=== PATIENT | female | born 2000 | race Caucasian/White ===

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

== ENCOUNTER 2020-06-02 09:07 | Emergency (ER) | payer OTHER ==
[2020-06-02 09:13] VITALS: RESP 18; TEMP 98.3
[2020-06-02] MEDS ORDERED: PANTOPRAZOLE 40 MG/10 ML VIAL IVP STA (09:31)
[2020-06-02] MEDS ORDERED: SODIUM CHLORIDE 0.9% 500 ML 500 ML IV STA (09:31)
[2020-06-02] MEDS ORDERED: ONDANSETRON 4 MG/2 ML VIAL IVP STA (09:32)
--- NOTE | 2020-06-02 09:34 | ED ---
General Adult HPI - General Chief complaint: Nausea/Vomiting/Diarrhea Stated complaint: Vomiting blood Time Seen by Provider: 06/02/20 09:26 Source: patient, RN notes reviewed, old records reviewed Mode of arrival: ambulatory Limitations: no limitations - History of Present Illness Initial comments: 19-year-old female presented for evaluation of vomiting. Patient had an episode prior to arrival of nausea vomiting with significant amount of blood. She denies a prior history of gastrointestinal bleeding. She does report anemia which she takes iron supplementation for she also reports dark stool for some time. She reports minimal epigastric abdominal pain. No fever. There is only one isolated episode of vomiting. No diarrhea. Denies current . - Related Data Home Medications Medication Instructions Recorded Confirmed Methylphenidate HCl [Ritalin] 10 mg PO BID@0600,1500 06/02/20 06/02/20 QUEtiapine [SEROquel] 100 mg PO HS 06/02/20 06/02/20 Allergies Allergy/AdvReac Type Severity Reaction Status Date / Time dextromethorphan HBr Allergy Rash/Hives Verified 06/02/20 10:04 [From Delsym Cough & Cold] doxylamine Allergy Rash/Hives Verified 06/02/20 10:04 [From Delsym Cough & Cold] honey Allergy Rash/Hives Verified 06/02/20 10:04 Review of Systems ROS Statement: Those systems with pertinent positive or pertinent negative responses have been documented in the HPI. ROS Other: All systems not noted in ROS Statement are negative. Past Medical History Past Medical History: No Reported History Additional Past Medical History / Comment(s): Obstetric history: This is her first and she's had care with me since the first trimester. Blood type is AB-, antibodies negative, rubella immune, hepatitis B-, GBS negative, HIV nonreactive, RPR nonreactive. Her growth ultrasound at 35 weeks t he baby is measuring only in the 20th percentile. Last week was undocked on the 17th percentile. History of Any Multi-Drug Resistant Organisms: None Reported Past Surgical History: No Surgical Hx Reported Past Psychological History: Anxiety, Bipolar Smoking Status: Never smoker Past Alcohol Use History: None Reported Past Drug Use History: Marijuana - Past Family History Mother Family Medical History: No Reported History General Exam Limitations: no limitations General appearance: alert, in no apparent distress Head exam: Present: atraumatic, normocephalic Eye exam: Present: normal appearance, PERRL ENT exam: Present: normal exam Neck exam: Present: normal inspection. Absent: tenderness, meningismus Respiratory exam: Present: normal lung sounds bilaterally. Absent: respiratory distress, wheezes Cardiovascular Exam: Present: regular rate, normal rhythm GI/Abdominal exam: Present: soft, tenderness (Minimal epigastric tenderness). Absent: distended Extremities exam: Present: normal inspection, normal capillary refill. Absent: pedal edema, joint swelling Neurological exam: Present: alert, oriented X3, CN II-XII intact. Absent: motor sensory deficit Psychiatric exam: Present: normal affect, normal mood Skin exam: Present: warm, dry, intact. Absent: cyanosis, diaphoretic Course Vital Signs 06/02/20 09:11 Temperature 98.3 F Pulse Rate 84 Respiratory 18 Rate Blood Pressure 119/83 O2 Sat by Pulse 100 Oximetry Medical Decision Making - Medical Decision Making 19-year-old female presenting with an episode of vomiting which did contain blood. No further episodes while in the emergency department. Her Hemoccult is negative. Hemoglobin is 14.9. Other laboratory studies are unremarkable. Patient is feeling better and eager for discharge. 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 She is given return parameters heart additionally she is instructed to take omeprazole 20 mg twice daily for several days. Follow-up with her primary care physician. - Lab Data Result diagrams: 06/02/20 10:41 06/02/20 10:41 Lab Results 06/02/20 06/02/20 06/02/20 Range/Units 10:41 10:41 10:41 WBC 9.1 (4.0-11.0) k/uL RBC 5.00 (3.80-5.40) m/uL Hgb 14.9 (11.4-16.0) gm/dL Hct 43.3 (34.0-46.0) % MCV 86.7 (80.0-100.0) fL MCH 29.9 (25.0-35.0) pg MCHC 34.5 (31.0-37.0) g/dL RDW 12.7 (11.5-15.5) % Plt Count 262 (150-450) k/uL MPV 7.3 Neutrophils % 65 % Lymphocytes % 28 % Monocytes % 4 % Eosinophils % 1 % Basophils % 0 % Neutrophils # 5.9 (1.3-7.7) k/uL Lymphocytes # 2.6 (1.0-4.8) k/uL Monocytes # 0.4 (0-1.0) k/uL Eosinophils # 0.1 (0-0.7) k/uL Basophils # 0.0 (0-0.2) k/uL PT 10.6 (9.0-12.0) sec INR 1.0 (<1.2) APTT 23.4 (22.0-30.0) sec Sodium (137-145) mmol/L Potassium (3.5-5.1) mmol/L Chloride (98-107) mmol/L Carbon Dioxide (22-30) mmol/L Anion Gap mmol/L BUN (7-17) mg/dL Creatinine (0.52-1.04) mg/dL Est GFR (CKD-EPI)AfAm (>60 ml/min/1.73 sqM) Est GFR (CKD-EPI)NonAf (>60 ml/min/1.73 sqM) Glucose (74-99) mg/dL Plasma Lactic Acid Jordan (0.7-2.0) mmol/L Calcium (8.4-10.2) mg/dL Total Bilirubin (0.2-1.3) mg/dL AST (14-36) U/L ALT (4-34) U/L Alkaline Phosphatase (38-126) U/L Total Protein (6.3-8.2) g/dL Albumin (3.5-5.0) g/dL Amylase (30-110) U/L Lipase (23-300) U/L Urine Color Light Yellow Urine Appearance Cloudy H (Clear) Urine pH 7.5 (5.0-8.0) Ur Specific Basco 1.007 (1.001-1.035) Urine Protein Negative (Negative) Urine Glucose (UA) Negative (Negative) Urine Ketones Negative (Negative) Urine Blood Negative (Negative) Urine Nitrite Negative (Negative) Urine Bilirubin Negative (Negative) Urine Urobilinogen <2.0 (<2.0) mg/dL Ur Leukocyte Esterase Small H (Negative) Urine RBC 1 (0-5) /hpf Urine WBC 7 H (0-5) /hpf Ur Squamous Epith Cells 10 H (0-4) /hpf Urine Bacteria Rare H (None) /hpf Urine HCG, Qual (Not Detectd) Stool Occult Blood (Negative) 06/02/20 06/02/20 06/02/20 Range/Units 10:41 10:41 10:41 WBC (4.0-11.0) k/uL RBC (3.80-5.40) m/uL Hgb (11.4-16.0) gm/dL Hct (34.0-46.0) % MCV (80.0-100.0) fL MCH (25.0-35.0) pg MCHC (31.0-37.0) g/dL RDW (11.5-15.5) % Plt Count (150-450) k/uL MPV Neutrophils % % Lymphocytes % % Monocytes % % Eosinophils % % Basophils % % Neutrophils # (1.3-7.7) k/uL Lymphocytes # (1.0-4.8) k/uL Monocytes # (0-1.0) k/uL Eosinophils # (0-0.7) k/uL Basophils # (0-0.2) k/uL PT (9.0-12.0) sec INR (<1.2) APTT (22.0-30.0) sec Sodium 139 (137-145) mmol/L Potassium 4.2 (3.5-5.1) mmol/L Chloride 105 (98-107) mmol/L Carbon Dioxide 27 (22-30) mmol/L Anion Gap 7 mmol/L BUN 12 (7-17) mg/dL Creatinine 0.61 (0.52-1.04) mg/dL Est GFR (CKD-EPI)AfAm >90 (>60 ml/min/1.73 sqM) Est GFR (CKD-EPI)NonAf >90 (>60 ml/min/1.73 sqM) Glucose 91 (74-99) mg/dL Plasma Lactic Acid Jordan 0.8 (0.7-2.0) mmol/L Calcium 10.1 (8.4-10.2) mg/dL Total Bilirubin 1.1 (0.2-1.3) mg/dL AST 18 (14-36) U/L ALT 12 (4-34) U/L Alkaline Phosphatase 52 (38-126) U/L Total Protein 7.7 (6.3-8.2) g/dL Albumin 4.8 (3.5-5.0) g/dL Amylase 56 (30-110) U/L Lipase 85 (23-300) U/L Urine Color Urine Appearance (Clear) Urine pH (5.0-8.0) Ur Specific Basco (1.001-1.035) Urine Protein (Negative) Urine Glucose (UA) (Negative) Urine Ketones (Negative) Urine Blood (Negative) Urine Nitrite (Negative) Urine Bilirubin (Negative) Urine Urobilinogen (<2.0) mg/dL Ur Leukocyte Esterase (Negative) Urine RBC (0-5) /hpf Urine WBC (0-5) /hpf Ur Squamous Epith Cells (0-4) /hpf Urine Bacteria (None) /hpf Urine HCG, Qual Not Detected (Not Detectd) Stool Occult Blood (Negative) 06/02/20 Range/Units 10:41 WBC (4.0-11.0) k/uL RBC (3.80-5.40) m/uL Hgb (11.4-16.0) gm/dL Hct (34.0-46.0) % MCV (80.0-100.0) fL MCH (25.0-35.0) pg MCHC (31.0-37.0) g/dL RDW (11.5-15.5) % Plt Count (150-450) k/uL MPV Neutrophils % % Lymphocytes % % Monocytes % % Eosinophils % % Basophils % % Neutrophils # (1.3-7.7) k/uL Lymphocytes # (1.0-4.8) k/uL Monocytes # (0-1.0) k/uL Eosinophils # (0-0.7) k/uL Basophils # (0-0.2) k/uL PT (9.0-12.0) sec INR (<1.2) APTT (22.0-30.0) sec Sodium (137-145) mmol/L Potassium (3.5-5.1) mmol/L Chloride (98-107) mmol/L Carbon Dioxide (22-30) mmol/L Anion Gap mmol/L BUN (7-17) mg/dL Creatinine (0.52-1.04) mg/dL Est GFR (CKD-EPI)AfAm (>60 ml/min/1.73 sqM) Est GFR (CKD-EPI)NonAf (>60 ml/min/1.73 sqM) Glucose (74-99) mg/dL Plasma Lactic Acid Jordan (0.7-2.0) mmol/L Calcium (8.4-10.2) mg/dL Total Bilirubin (0.2-1.3) mg/dL AST (14-36) U/L ALT (4-34) U/L Alkaline Phosphatase (38-126) U/L Total Protein (6.3-8.2) g/dL Albumin (3.5-5.0) g/dL Amylase (30-110) U/L Lipase (23-300) U/L Urine Color Urine Appearance (Clear) Urine pH (5.0-8.0) Ur Specific Basco (1.001-1.035) Urine Protein (Negative) Urine Glucose (UA) (Negative) Urine Ketones (Negative) Urine Blood (Negative) Urine Nitrite (Negative) Urine Bilirubin (Negative) Urine Urobilinogen (<2.0) mg/dL Ur Leukocyte Esterase (Negative) Urine RBC (0-5) /hpf Urine WBC (0-5) /hpf Ur Squamous Epith Cells (0-4) /hpf Urine Bacteria (None) /hpf Urine HCG, Qual (Not Detectd) Stool Occult Blood Negative (Negative) Disposition Clinical Impression: Nausea & vomiting, Hematemesis of unknown cause Disposition: HOME SELF-CARE Condition: Good Instructions (If sedation given, give patient instructions): Acute Nausea and Vomiting (ED) Additional Instructions: Please take omeprazole 20 mg twice daily for several days. Please follow with your primary care physician. Please return with any recurrence of vomiting blood or blood in her stool. Is patient prescribed a controlled substance at d/c from ED?: No Referrals: Sharmaine Santiago MD [Primary Care Provider] - 1-2 days Time of Disposition: 11:38
[2020-06-02 11:13] LABS: Basophils % (A) 0 %; Eosinophils # (A) 0.1 k/uL (0-0.7); Eosinophils % (A) 1 %; HCT 43.3 % (34.0-46.0); HGB 14.9 gm/dL (11.4-16.0); Lymphocytes # (A) 2.6 k/uL (1.0-4.8); Lymphocytes % (A) 28 %; MCH 29.9 pg (25.0-35.0); MCHC 34.5 g/dL (31.0-37.0); MCV 86.7 fL (80.0-100.0); Mean Platelet Volume 7.3; Monocytes # (A) 0.4 k/uL (0-1.0); Monocytes % (A) 4 %; Neutrophils # (A) 5.9 k/uL (1.3-7.7); Neutrophils % (A) 65 %; Platelet Count 262 k/uL (150-450); RDW 12.7 % (11.5-15.5); WBC 9.1 k/uL (4.0-11.0)
--- NOTE | 2020-06-02 11:14 | XR ---
KUB HISTORY: Abdominal pain, vomiting blood KUB submitted on 2 images, correlation to prior KUB 01/01/2015 Lung bases are clear. There is no evident bowel obstruction or pneumoperitoneum. No pathologic calcif ication is seen. Probable IUD within the pelvis. Mildly dense loop of bowel noted within the pelvis i s questioned. Some air-fluid levels are present without distention. IMPRESSION: Intrauterine contraceptive device has been placed in the interval, correlate. Correlate f or possible enteritis, ileus. Additional findings above.
[2020-06-02 11:21] LABS: Appearance,Urine Cloudy (Clear); Bacteria,Urine Rare /hpf; Bilirubin,Urine Negative (Negative); Blood,Urine Negative (Negative); Color,Urine Light Yellow; Glucose,Urine (UA) Negative (Negative); Ketones,Urine Negative (Negative); Leukocyte Esterase,Urine Small (Negative); Nitrite,Urine Negative (Negative); PH, Urine 7.5 (5.0-8.0); Protein,Urine Negative (Negative); RBC,Urine 1 /hpf (0-5); Specific Gravity,Urine 1.007 (1.001-1.035); Squamous Epithelial Cell,Urine 10 /hpf (0-4); Urobilinogen,Urine <2.0 mg/dL (<2.0); WBC,Urine 7 /hpf (0-5)
[2020-06-02 11:22] LABS: Prothrombin Time 10.6 sec (9.0-12.0)
[2020-06-02 11:23] LABS: Partial Thromboplastin Time 23.4 sec (22.0-30.0)
[2020-06-02 11:26] LABS: ALT 12 U/L (4-34); AST 18 U/L (14-36); African American GFR (CKD) >90 (>60 ml/min/1.73 sqM); Albumin 4.8 g/dL (3.5-5.0); Alkaline Phosphatase 52 U/L (38-126); Amylase 56 U/L (30-110); Anion Gap 7 mmol/L; Blood Urea Nitrogen 12 mg/dL (7-17); Calcium 10.1 mg/dL (8.4-10.2); Carbon Dioxide 27 mmol/L (22-30); Chloride 105 mmol/L (98-107); Glucose 91 mg/dL (74-99); Lipase 85 U/L (23-300); Non-African American GFR(CKD) >90 (>60 ml/min/1.73 sqM); Potassium 4.2 mmol/L (3.5-5.1); Sodium 139 mmol/L (137-145); Total Bilirubin 1.1 mg/dL (0.2-1.3); Total Protein 7.7 g/dL (6.3-8.2)
[2020-06-02 12:28] VITALS: BP 116/79; PULSE 70
== END 2020-06-02 12:29 | disposition home or self-care (01) ==
LOC: EC 09:07
DX: K92.0 Hematemesis (principal); R10.13 Epigastric pain; F41.9 Anxiety disorder, unspecified
CPT/HCPCS: 36415; 86900; 86901; 80053; 82150; 83605; 83690; 85025; 85610; 85730; 86850; 82272; 81001; 81025; 74018; 99284; 96374; 96375; 96361 ×2; J2405; C9113

== ENCOUNTER 2020-06-17 15:36 | Emergency (ER) | payer OTHER ==
[2020-06-17 16:02] VITALS: BP 115/81; PULSE 81; RESP 20; TEMP 97.9
[2020-06-17 16:30] LABS: Appearance,Urine Clear (Clear); Bilirubin,Urine Negative (Negative); Blood,Urine Moderate (Negative); Color,Urine Yellow; Glucose,Urine (UA) Negative (Negative); Hyaline Casts,Urine 1 /lpf (0-2); Ketones,Urine 3+ (Negative); Leukocyte Esterase,Urine Trace (Negative); Mucus,Urine Few /hpf; Nitrite,Urine Negative (Negative); Protein,Urine Trace (Negative); RBC,Urine 2 /hpf (0-5); Specific Gravity,Urine 1.026 (1.001-1.035); Squamous Epithelial Cell,Urine 2 /hpf (0-4); WBC,Urine 3 /hpf (0-5)
[2020-06-17 17:07] LABS: Basophils % (A) 0 %; Eosinophils # (A) 0.2 k/uL (0-0.7); Eosinophils % (A) 1 %; HCT 43.9 % (34.0-46.0); HGB 15.4 gm/dL (11.4-16.0); Lymphocytes # (A) 2.8 k/uL (1.0-4.8); Lymphocytes % (A) 25 %; MCH 29.8 pg (25.0-35.0); MCHC 35.2 g/dL (31.0-37.0); MCV 84.7 fL (80.0-100.0); Mean Platelet Volume 7.2; Monocytes # (A) 0.5 k/uL (0-1.0); Monocytes % (A) 4 %; Neutrophils # (A) 7.6 k/uL (1.3-7.7); Neutrophils % (A) 68 %; Platelet Count 256 k/uL (150-450); RBC 5.18 m/uL (3.80-5.40); RDW 12.4 % (11.5-15.5); WBC 11.1 k/uL (4.0-11.0)
[2020-06-17 17:15] LABS: ALT 14 U/L (4-34); AST 20 U/L (14-36); African American GFR (CKD) >90 (>60 ml/min/1.73 sqM); Alkaline Phosphatase 54 U/L (38-126); Amylase 52 U/L (30-110); Anion Gap 10 mmol/L; Blood Urea Nitrogen 13 mg/dL (7-17); Calcium 10.3 mg/dL (8.4-10.2); Carbon Dioxide 24 mmol/L (22-30); Chloride 106 mmol/L (98-107); Glucose 79 mg/dL (74-99); Lipase 51 U/L (23-300); Non-African American GFR(CKD) >90 (>60 ml/min/1.73 sqM); Potassium 4.3 mmol/L (3.5-5.1); Sodium 140 mmol/L (137-145); Total Bilirubin 1.1 mg/dL (0.2-1.3); Total Protein 8.2 g/dL (6.3-8.2)
== END 2020-06-17 16:54 | disposition left against medical advice (07) ==
LOC: EC 15:36
DX: Z53.21 Procedure and treatment not carried out due to patient leaving prior to being seen by health care provider (principal)
CPT/HCPCS: 36415; 80053; 81001; 81025; 82150; 83690; 85025; 99499

== ENCOUNTER → 2020-06-27 | Day surgery (SDC) | payer OTHER ==
[2020-06-24 13:28] VITALS: BMI 25.7
[~2020-06-27] MED LIST: BUPIVACAINE (PF) 0.25% 30 ML VIAL SQ ONE; DEXAMETHASONE SOD PHOSPHATE 4 MG/ML 1 ML VIAL IV ONE; HYDROmorphone 0.5 MG/0.5 ML SYRINGE IVP PRN; KETAMINE 10 MG/ML 20 ML VIAL ONE; LACTATED RINGERS 1,000 ML IV ONE; LACTATED RINGERS 1,000 ML IV SCH; LIDOCAINE 1% (10MG/ML) FOR IV START INTRADERMA ONE; LIDOCAINE 1% INJ 10MG/ML (20 ML MDV) ONE; LIDOCAINE 1% INJ 10MG/ML (20 ML MDV) SQ ONE; MIDAZOLAM 2 MG/2 ML VIAL IV PRN; MIDAZOLAM 2 MG/2 ML VIAL ONE; ONDANSETRON 4 MG/2 ML VIAL IVP ONE; PROPOFOL 10 MG/ML 20 ML VIAL IV ONE; Pre Op ABX Message 1 EACH MISC MISCELLANE ONE; SCOPOLAMINE 1.5MG/72HR PATCH TRANSDERM ONE; fentaNYL (PF) 50 MCG/ML 2 ML AMP ONE
[2020-06-27 12:48] VITALS: TEMP 98.6
[2020-06-27 18:31] VITALS: BP 122/81; PULSE 80; RESP 16
--- NOTE | 2020-07-15 17:19 | P.OP ---
Date of Procedure: 06/27/20 Procedure(s) Performed: PREOPERATIVE DIAGNOSES: 1. Right thumb subcutaneous mass, level of proximal phalanx, 1.5 cm POSTOPERATIVE DIAGNOSES: 1. Right thumb subcutaneous mass, level of proximal phalanx, 1.5 cm PROCEDURES PERFORMED: 1. 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 She desires removal. The risks and potential complications of surgery have been discussed at length. The consent form has been signed. PROCEDURE: The patient was taken to the operating room after appropriate consent was obtained. IV sedation was initiated and the right upper extremity was prepared and draped in the usual aseptic fashion with Hibiclens prep. Time-out was called, confirming patient identity, side, and procedure. Digital block was adm inistered with 1% lidocaine solution. A total of approximately 6 cc was used. Exsanguination of the finger with a modified Esmarch bandage was accomplished and held in place at the base of the finger. The skin was then incised with a scalpel just through the dermis, following the skin crease. Incision was placed directly over the palpable mass which was located on the ulnar side of the thumb at the level of the proximal phalanx. Skin hooks were used gently hold the skin open and careful subcutaneous dissection was performed sharply using a knife the mass was directly beneath the dermis of the skin and was noted to be consistent with granuloma or giant cell tumor associated with tendon sheath. It was sent to pathology in formalin for analysis. Any remnant of the mass was carefully evaluated within the wound and removed as necessary. The area was then thoroughly irrigated with normal saline. Tourniquet was deflated and hemostasis was obtained using pressure. Closure was performed using horizontal mattress 4-0 nylon sutures followed by sterile dressing with a lightly compressive Coban wrap. The patient tolerated the procedure well and was taken to recovery room in stable condition. Sponge and needle count were correct.
== END | disposition home or self-care (01) ==
LOC: OR 12:11
PROVIDERS: ATTEND Orthopaedic Surgery
DX: D48.1 Neoplasm of uncertain behavior of connective and other soft tissue (principal); F41.9 Anxiety disorder, unspecified; F31.9 Bipolar disorder, unspecified; K21.9 Gastro-esophageal reflux disease without esophagitis; Z87.11 Personal history of peptic ulcer disease; Z98.890 Other specified postprocedural states; Z79.899 Other long term (current) drug therapy; Z88.8 Allergy status to other drugs, medicaments and biological substances; Z91.018 Allergy to other foods
CPT/HCPCS: 81025; 88305; 26111; J2250; J1100; J2405; J2001; J3010; J2704

== ENCOUNTER 2020-07-03 10:46 | Day surgery (SDC) | payer OTHER ==
[2020-07-02 08:38] VITALS: BMI 24.4
[~2020-07-03 10:46] MED LIST changes: -BUPIVACAINE (PF) 0.25% 30 ML VIAL SQ ONE; -DEXAMETHASONE SOD PHOSPHATE 4 MG/ML 1 ML VIAL IV ONE; -HYDROmorphone 0.5 MG/0.5 ML SYRINGE IVP PRN; -KETAMINE 10 MG/ML 20 ML VIAL ONE; -LACTATED RINGERS 1,000 ML IV ONE; -LIDOCAINE 1% (10MG/ML) FOR IV START INTRADERMA ONE; -LIDOCAINE 1% INJ 10MG/ML (20 ML MDV) ONE; -LIDOCAINE 1% INJ 10MG/ML (20 ML MDV) SQ ONE; -MIDAZOLAM 2 MG/2 ML VIAL IV PRN; -MIDAZOLAM 2 MG/2 ML VIAL ONE; -ONDANSETRON 4 MG/2 ML VIAL IVP ONE; -PROPOFOL 10 MG/ML 20 ML VIAL IV ONE; -Pre Op ABX Message 1 EACH MISC MISCELLANE ONE; -SCOPOLAMINE 1.5MG/72HR PATCH TRANSDERM ONE; -fentaNYL (PF) 50 MCG/ML 2 ML AMP ONE
[2020-07-03 11:32] VITALS: TEMP 97.2
[2020-07-03] MEDS ORDERED: LIDOCAINE 1% (10MG/ML) FOR IV START INTRADERMA ONE (11:35)
--- NOTE | 2020-07-03 12:41 | P.PCN ---
Date of Procedure: 07/03/20 Description of Procedure: BRIEF HISTORY: Patient is a 19-year-old female presenting for outpatient esophagogastroduodenoscopy for evaluation of symptoms of hematemesis, nausea and vomiting. Patient reports frequent episodes of nausea and vomiting. Present throughout the day, after eating and in the morning. She was started on omeprazole twice daily and sucralfate with some improvement in symptoms. She is seen blood with vomiting in the past. Patient does use marijuana. PROCEDURE PERFORMED: Esophagogastroduodenoscopy with biopsy. PREOPERATIVE DIAGNOSIS: .Hematemesis, nausea and vomiting ESTIMATED BLOOD LOSS: Minimal. IV sedation per anesthesia. PROCEDURE: After informed consent was obtained, the patient was brought into the endoscopy unit. IV sedation was administered by Anesthesia under continuous monitoring. Initially the Olympus GIF-190 video endoscope was inserted into the mouth. Esophagus intubated without any difficulty. It was gradually advanced into the stomach and duodenum and carefully examined. The bulb and the second part of the duodenum appeared normal, with biopsies taken . The scope at this time was withdrawn to the stomach, adequately insufflated with air, and upon careful examination, mucosa of the antrum, body, cardia and the fundus appeared normal, except for some mild punctate erythema in the antrum and body suggestive of mild gastritis with biopsies taken . The scope was then withdrawn into the esophagus. The GE junction was located at 36 cm from the incisors. The esophagus appeared normal, with biopsies of the lower esophagus and midesophagus taken to rule out reflux esophagitis or EOE . There were no erosions or ulcerations seen and the patient tolerated the procedure well. IMPRESSION: 1. Mild gastritis. 2. Biopsies of the duodenum, antrum and body, lower esophagus and mid esophagus. RECOMMENDATIONS: The findings of this examination were discussed with the patient.. Okay to resume diet. Okay to resume medications. Continue omeprazole and sucralfate therapy. Patient may benefit from a prolonged abstinence from marijuana use to rule out possible cannabinoid hyperemesis syndrome.
[2020-07-03 12:51] VITALS: BP 98/60; PULSE 64; RESP 18
== END 2020-07-03 13:30 | disposition home or self-care (01) ==
LOC: ORWHC2ENDO 10:46
PROVIDERS: ATTEND Internal Medicine
DX: K29.51 Unspecified chronic gastritis with bleeding (principal); K20.91 Esophagitis, unspecified with bleeding; K21.9 Gastro-esophageal reflux disease without esophagitis; Z87.11 Personal history of peptic ulcer disease; Z88.8 Allergy status to other drugs, medicaments and biological substances; Z91.018 Allergy to other foods; Z79.899 Other long term (current) drug therapy
CPT/HCPCS: 43239; 81025; 88305

== ENCOUNTER 2020-09-21 01:49 | Emergency (ER) | payer OTHER ==
[2020-09-21 02:01] VITALS: BP 127/86; PULSE 68; RESP 18; TEMP 98.1
[2020-09-21] MEDS ORDERED: ACETAMINOPHEN TAB 325 MG TAB PO STA (02:02)
[2020-09-21] MEDS ORDERED: LIDOCAINE 1% INJ 10MG/ML (20 ML MDV) SQ ONE (02:03)
[2020-09-21] MEDS ORDERED: BACITRACIN OINT 1 EACH PACKET TOPICAL ONE (02:03)
--- NOTE | 2020-09-21 02:05 | ED ---
Wound/Laceration HPI - General Chief Complaint: Wound/Laceration Stated Complaint: Hand Laceration Time Seen by Provider: 09/21/20 01:59 Source: patient Mode of arrival: ambulatory Limitations: no limitations - History of Present Illness Initial Comments: 19 year-old female patient presents to the emergency department for evaluation of laceration to the right thumb. States that she was doing dishes and cut her thumb on a knife. States there was a lot of bleeding. Bleeding stopped on arrival. States she is having mild pain to the area. Denies numbness or tingling to the thumb. Denies any difficulty with range of motion. Denies use of blood thinning medications. States tetanus is up to date. Denies any other injuries or concerns. - Related Data Home Medications Medication Instructions Recorded Confirmed Methylphenidate HCl [Ritalin] 10 mg PO BID 06/02/20 07/03/20 QUEtiapine [SEROquel] 100 mg PO HS 06/02/20 07/03/20 Prilosec (Unknown Dose) 1 tab PO BID 06/24/20 07/03/20 Sucralfate [Carafate] 1 gm PO TID 06/24/20 07/03/20 Allergies Allergy/AdvReac Type Severity Reaction Status Date / Time dextromethorphan HBr Allergy Rash/Hives Verified 09/21/20 01:55 [From Delsym Cough & Cold] doxylamine Allergy Rash/Hives Verified 09/21/20 01:55 [From Delsym Cough & Cold] honey Allergy Rash/Hives Verified 09/21/20 01:55 Review of Systems ROS Statement: Those systems with pertinent positive or pertinent negative responses have been documented in the HPI. ROS Other: All systems not noted in ROS Statement are negative. Past Medical History Past Medical History: GERD/Reflux Additional Past Medical History / Comment(s): Current stomach ulcer. History of Any Multi-Drug Resistant Organisms: None Reported Past Surgical History: No Surgical Hx Reported Additional Past Surgical History / Comment(s): Liposuction. Past Anesthesia/Blood Transfusion Reactions: No Reported Reaction Past Psychological History: Anxiety, Bipolar Smoking Status: Never smoker Past Alcohol Use History: Occasional Past Drug Use History: Marijuana - Past Family History Mother Family Medical History: No Reported History General Exam Limitations: no limitations General appearance: alert, in no apparent distress, other (Physical well- developed, well-nourished adult female patient in no acute distress. Vital signs upon presentation are temperature 98.1F. Pulse 68, respirations 18, blood pressure 127/86, pulse ox 98% on room air.) Eye exam: Present: normal appearance, PERRL, EOMI. Absent: scleral icterus, conjunctival injection, periorbital swelling ENT exam: Present: normal exam, normal oropharynx, mucous membranes moist Respiratory exam: Present: normal lung sounds bilaterally. Absent: respiratory distress, wheezes, rales, rhonchi, stridor Cardiovascular Exam: Present: regular rate, normal rhythm, normal heart sounds. Absent: systolic murmur, diastolic murmur, rubs, gallop, clicks Extremities exam: Present: full ROM, normal capillary refill, other (2cm laceration noted to the dorsal right thumb over the proximal phalanx. No active bleeding. Full ROM intact. Skin is pink, warm, dry. Cap refill less than 3 seconds. Radial pulses 2+.). Absent: tenderness, pedal edema, joint swelling, calf tenderness Neurological exam: Present: alert, oriented X3, CN II-XII intact Psychiatric exam: Present: normal affect, normal mood Skin exam: Present: warm, dry, intact, normal color. Absent: rash Course Vital Signs 09/21/20 02:01 Temperature 98.1 F Pulse Rate 68 Respiratory 18 Rate Blood Pressure 127/86 O2 Sat by Pulse 98 Oximetry Procedures - Laceration Laceration #1 Consent Obtained: verbal consent Indication: laceration Site: hand (right thumb) Size (cm): 2 Description: linear Depth: simple, single layer Anesthesia Technique: local infiltration Amount (mls): 3 Pre-repair: irrigated extensively Size of Sutures: 5-0 Number of Sutures: 3 Technique: simple, interrupted Patient Tolerated Procedure: well, no complications Medical Decision Making - Medical Decision Making 19-year-old female patient presents to the emergency department today for evaluation of laceration to the right thumb. Physical examination did reveal 2 cm laceration to the right dorsal thumb. Laceration was repaired as documented. Neurovascular status was intact. She'll be discharged to follow up with primary care physician for recheck in 1-2 days per she is educated regarding wound care, signs or symptoms of infection. She is instructed to return in 7 days to have the stitches removed. Return parameters discussed in detail. They verbalize understanding and agree with this plan. My attending is Dr. Jain. Disposition Clinical Impression: Laceration of right thumb Disposition: HOME SELF-CARE Condition: Good Instructions (If sedation given, give patient instructions): Care For Your Stitches (ED), Laceration (ED) Additional Instructions: Keep wound clean and dry. Cleanse twice daily with warm water and antibacterial soap. Return to have the stitches removed in 7 days. Follow up with your primary care physician for recheck in 1-2 days. Return for any new, worsening, or concerning symptoms. Is patient prescribed a controlled substance at d/c from ED?: No Referrals: Sharmaine Santiago MD [Primary Care Provider] - 1-2 days Time of Disposition: 02:27
== END 2020-09-21 02:29 | disposition home or self-care (01) ==
LOC: EC 01:49
DX: S61.011A Laceration without foreign body of right thumb without damage to nail, initial encounter (principal); K21.9 Gastro-esophageal reflux disease without esophagitis; F31.9 Bipolar disorder, unspecified; F41.9 Anxiety disorder, unspecified; F12.90 Cannabis use, unspecified, uncomplicated; Z79.899 Other long term (current) drug therapy; W26.0XXA Contact with knife, initial encounter; Y93.G1 Activity, food preparation and clean up
CPT/HCPCS: 12001; 99282; J2001

== ENCOUNTER 2020-11-06 09:12 | Emergency (ER) | payer OTHER ==
[2020-11-06 09:23] VITALS: BP 108/69; PULSE 85; RESP 18; TEMP 96.7
[2020-11-06] MEDS ORDERED: KETOROLAC 15 MG/ML 1 ML VIAL IM STA (09:51)
--- NOTE | 2020-11-06 10:44 | ED ---
Lower Extremity Injury HPI - General Chief Complaint: Extremity Injury, Lower Stated Complaint: Fall, foot injury Time Seen by Provider: 11/06/20 09:26 Source: patient, RN notes reviewed Mode of arrival: wheelchair Limitations: no limitations - History of Present Illness Initial Comments: Patient is a 20-year-old female that presents to emergency department complaining of left foot and ankle pain. She notes that she fell down an entire flight of stairs after losing her balance and missing a step. She notes that this happened last night. She notes that she does have full sensation in her left lower extremity and foot. She notes that she can with her toes but her foot hurts to move secondary to pain. She does have good pulses. She denied any other issues or complaints at this time. She was otherwise a well-appearing 20-year-old female in no apparent distress or pain. She denied any chest pain first breath headache nausea vomiting diarrhea constipation fever fatigue chills. - Related Data Home Medications Medication Instructions Recorded Confirmed Methylphenidate HCl [Ritalin] 10 mg PO BID 06/02/20 07/03/20 QUEtiapine [SEROquel] 100 mg PO HS 06/02/20 07/03/20 Prilosec (Unknown Dose) 1 tab PO BID 06/24/20 07/03/20 Sucralfate [Carafate] 1 gm PO TID 06/24/20 07/03/20 Allergies Allergy/AdvReac Type Severity Reaction Status Date / Time dextromethorphan HBr Allergy Rash/Hives Verified 11/06/20 09:20 [From Delsym Cough & Cold] doxylamine Allergy Rash/Hives Verified 11/06/20 09:20 [From Delsym Cough & Cold] honey Allergy Rash/Hives Verified 11/06/20 09:20 Review of Systems ROS Statement: Those systems with pertinent positive or pertinent negative responses have been documented in the HPI. ROS Other: All systems not noted in ROS Statement are negative. Past Medical History Past Medical History: GERD/Reflux Additional Past Medical History / Comment(s): Current stomach ulcer. History of Any Multi-Drug Resistant Organisms: None Reported Past Surgical History: No Surgical Hx Reported Additional Past Surgical History / Comment(s): Liposuction. Past Anesthesia/Blood Transfusion Reactions: No Reported Reaction Past Psychological History: Anxiety, Bipolar Smoking Status: Never smoker Past Alcohol Use History: Occasional Past Drug Use History: Marijuana - Past Family History Mother Family Medical History: No Reported History Additional Family Medical History / Comment(s): "Has Ovarian Cancer Gene." General Exam Limitations: no limitations General appearance: alert, in no apparent distress Head exam: Present: atraumatic, normocephalic, normal inspection Eye exam: Present: normal appearance, PERRL, EOMI. Absent: scleral icterus, conjunctival injection, periorbital swelling Neck exam: Present: normal inspection Respiratory exam: Present: normal lung sounds bilaterally. Absent: respiratory distress, wheezes, rales, rhonchi, stridor Cardiovascular Exam: Present: regular rate, normal rhythm, normal heart sounds. Absent: systolic murmur, diastolic murmur, rubs, gallop, clicks GI/Abdominal exam: Present: soft, normal bowel sounds. Absent: distended, tenderness, guarding, rebound, rigid Left Ankle exam: Present: normal inspection, tenderness (Posterior lateral aspect.), swelling (Minimal). Absent: full ROM (Secondary to pain), abrasion, laceration, ecchymosis Foot/Toe exam: Present: normal inspection, full ROM, tenderness (Lateral dorsal aspect), swelling (Minimal to the lateral aspect), ecchymosis (Lateral dorsal aspect) Neurological exam: Present: alert, oriented X3 Psychiatric exam: Present: normal affect, normal mood Skin exam: Present: warm, dry, intact, normal color. Absent: rash Course Vital Signs 11/06/20 09:20 Temperature 96.7 F L Pulse Rate 85 Respiratory 18 Rate Blood Pressure 108/69 O2 Sat by Pulse 96 Oximetry Procedures - Orthopedic Splinting/Casting Injury #1 Side: left Lower Extremity Injury Location: ankle Lower Extremity Immobilizer: [employer] Medical Decision Making - Medical Decision Making 20-year-old female complaining of left foot and ankle pain after slipping and falling down a full voice stairs last night. X-ray of the left foot and ankle, 15 mg of Toradol ordered. X-ray imaging negative for any acute fractures dislocations. Patient most likely has an ankle and foot sprain on the left side. Case discussed with Dr. Ochoa, patient can discharge home with follow-up to orthopedics as needed. - Radiology Data Radiology results: report reviewed, image reviewed Left foot and ankle x-ray: There is no acute fracture dislocation of left ankle. Disposition Clinical Impression: Sprain of left foot, Left ankle sprain Disposition: HOME SELF-CARE Condition: Stable Instructions (If sedation given, give patient instructions): Ankle Sprain (ED), Foot Sprain (ED) Additional Instructions: Please return to the Emergency Department if symptoms worsen or any other concerns. Follow-up with primary care in 1-2 days. Follow-up with orthopedics as needed. Use as tolerated. Is patient prescribed a controlled substance at d/c from ED?: No Referrals: Sharmaine Santiago MD [Primary Care Provider] - 1-2 days Petros Moon MD [STAFF PHYSICIAN] - 1-2 days Time of Disposition: 10:47
--- NOTE | 2020-11-06 10:44 | XR ---
EXAMINATION TYPE: XR ankle complete LT, XR foot complete LT DATE OF EXAM: 11/06/2020 CLINICAL HISTORY: Fall injury one day ago with pain and swelling TECHNIQUE: Frontal, lateral and oblique images of the left ankle and foot are obtained. COMPARISON: None. FINDINGS: There is no acute fracture/dislocation evident in the left ankle. The ankle mortise appea rs within normal limits. The overlying soft tissue appears unremarkable. There is no acute fracture or dislocation evident in the left foot. Hallux valgus positioning first m etatarsophalangeal joint is noted. Some flexion of the toes is seen. Overlying Soft tissue is unremarkable. IMPRESSION: There is no acute fracture or dislocation in the left ankle or foot.
== END 2020-11-06 11:32 | disposition home or self-care (01) ==
LOC: EC 09:12
DX: S93.402A Sprain of unspecified ligament of left ankle, initial encounter (principal); S93.602A Unspecified sprain of left foot, initial encounter; K21.9 Gastro-esophageal reflux disease without esophagitis; F31.9 Bipolar disorder, unspecified; F41.9 Anxiety disorder, unspecified; F12.90 Cannabis use, unspecified, uncomplicated; Z79.899 Other long term (current) drug therapy; W10.8XXA Fall (on) (from) other stairs and steps, initial encounter
CPT/HCPCS: 73610; 73630; 96372; 99284; J1885

== ENCOUNTER 2020-11-25 15:36 | Observation (INO) | payer OTHER ==
[2020-11-25] MEDS ORDERED: SODIUM CHLORIDE 0.9% 1,000 ML IV STA (16:08)
--- NOTE | 2020-11-25 16:11 | ED ---
General Adult HPI - General Chief complaint: Psychiatric Symptoms Stated complaint: overdose Time Seen by Provider: 11/25/20 15:38 Source: patient, EMS Mode of arrival: EMS Limitations: no limitations - History of Present Illness Initial comments: Dictation was produced using [employer] dictation software. please excuse any grammatical, word or spelling errors. Chief Complaint: 20-year-old female presents with overdose of Seroquel History of Present Illness: Patient 20-year-old female she has history of bipolar disease. She overdosed on 11 circled tablets. There are 100 mg tablets that are used to treat her bipolar disease. Medications prescribed by her primary care doctor. Patient states she wanted to kill herself. She decided at that was about idea and EMS was contacted patient is brought to the ER. Time of ingestion was at approximately 2:15 PM. Patient states that she feels like her heart fluttering. Denies any pain complaints. No nausea or vomiting. Patient denies . The ROS documented in this emergency department record has been reviewed and confirmed by me. Those systems with pertinent positive or negative responses have been documented in the HPI. All other systems are other negative and/or noncontributory. PHYSICAL EXAM: General Impression: Alert and oriented x3, not in acute distress HEENT: Normocephalic atraumatic, extra-ocular movements intact, pupils equal and reactive to light bilaterally, mucous membranes moist. Cardiovascular: Tachycardic Chest: Able to complete full sentences, no retractions, no tachypnea Abdomen: abdomen soft, non-tender, non-distended, no organomegaly Musculoskeletal: Pulses present and equal in all extremities, no peripheral edema Motor: no focal deficits noted Neurological: CN II-XII grossly intact, no focal motor or sensory deficits noted Skin: Intact with no visualized rashes Psych: Normal affect and mood ED course: 20-year-old female presents emergency department for cervical overdose. Time of ingestion was 2:15 PM. She took 1100 mg tablets of Seroquel. Patient has sinus tachycardia. She has symptoms of palpitations. Vital signs upon arrival shows heart rate of 11 cumbersome vital signs within acceptable limits. EKG shows heart rate of 130. Patient is reevaluated at the bedside with improvement of tachycardia to a rate of 90s to 100. Laboratory evaluation obtained. CBC, metabolic panel is unremarkable. Urinalysis is negative. Urine hCG is negative. Toxicology is positive for TCAs. Repeat EKG shows stable findings without any widening QRS or prolonged QT. Poison control was contacted recommended every 3 hours EKGs and Cardec monitoring. Patient be admitted for medical monitoring under the care of Dr. Reyna. Psychiatry is on consult. EKG interpretation: Ventricular rate 1:30, sinus tachycardia,. 142, QRS 78, QTc 435. No TN prolongation, no QTC prolongation, no ST or T-wave changes noted. - Related Data Home Medications Medication Instructions Recorded Confirmed QUEtiapine [SEROquel] 100 mg PO HS 06/02/20 11/25/20 Sertraline [Zoloft] 75 mg PO DAILY 11/25/20 11/25/20 Allergies Allergy/AdvReac Type Severity Reaction Status Date / Time dextromethorphan HBr Allergy Rash/Hives Verified 11/25/20 17:47 [From Delsym Cough & Cold] doxylamine Allergy Rash/Hives Verified 11/25/20 17:47 [From Delsym Cough & Cold] honey Allergy Rash/Hives Verified 11/25/20 17:47 Review of Systems ROS Statement: Those systems with pertinent positive or pertinent negative responses have been documented in the HPI. ROS Other: All systems not noted in ROS Statement are negative. Past Medical History Past Medical History: GERD/Reflux Additional Past Medical History / Comment(s): Current stomach ulcer. History of Any Multi-Drug Resistant Organisms: None Reported Past Surgical History: No Surgical Hx Reported Additional Past Surgical History / Comment(s): Liposuction. Past Anesthesia/Blood Transfusion Reactions: No Reported Reaction Past Psychological History: Anxiety, Bipolar Smoking Status: Never smoker Past Alcohol Use History: Occasional Past Drug Use History: Marijuana - Past Family History Mother Family Medical History: No Reported History Additional Family Medical History / Comment(s): "Has Ovarian Cancer Gene." General Exam Limitations: no limitations Course Vital Signs 11/25/20 11/25/20 11/25/20 15:56 17:00 17:55 Temperature 98 F Pulse Rate 101 H 100 90 Respiratory 18 18 18 Rate Blood Pressure 147/89 124/73 123/71 O2 Sat by Pulse 100 95 99 Oximetry Medical Decision Making - Lab Data Result diagrams: 11/25/20 16:11 11/25/20 16:11 Lab Results 11/25/20 11/25/20 11/25/20 Range/Units 16:11 16:11 16:11 WBC 9.1 (4.0-11.0) k/uL RBC 4.84 (3.80-5.40) m/uL Hgb 14.5 (11.4-16.0) gm/dL Hct 42.6 (34.0-46.0) % MCV 88.1 (80.0-100.0) fL MCH 30.0 (25.0-35.0) pg MCHC 34.1 (31.0-37.0) g/dL RDW 12.1 (11.5-15.5) % Plt Count 223 (150-450) k/uL MPV 7.8 Neutrophils % 78 % Lymphocytes % 16 % Monocytes % 4 % Eosinophils % 1 % Basophils % 0 % Neutrophils # 7.1 (1.3-7.7) k/uL Lymphocytes # 1.5 (1.0-4.8) k/uL Monocytes # 0.4 (0-1.0) k/uL Eosinophils # 0.1 (0-0.7) k/uL Basophils # 0.0 (0-0.2) k/uL Sodium (137-145) mmol/L Potassium (3.5-5.1) mmol/L Chloride (98-107) mmol/L Carbon Dioxide (22-30) mmol/L Anion Gap mmol/L BUN (7-17) mg/dL Creatinine (0.52-1.04) mg/dL Est GFR (CKD-EPI)AfAm (>60 ml/min/1.73 sqM) Est GFR (CKD-EPI)NonAf (>60 ml/min/1.73 sqM) Glucose (74-99) mg/dL Osmolality (280-301) mosm/kg Calcium (8.4-10.2) mg/dL Total Bilirubin (0.2-1.3) mg/dL AST (14-36) U/L ALT (4-34) U/L Alkaline Phosphatase (38-126) U/L Total Protein (6.3-8.2) g/dL Albumin (3.5-5.0) g/dL Urine Color Colorless Urine Appearance Clear (Clear) Urine pH 6.0 (5.0-8.0) Ur Specific [place] 1.001 (1.001-1.035) Urine Protein Negative (Negative) Urine Glucose (UA) Negative (Negative) Urine Ketones Negative (Negative) Urine Blood Negative (Negative) Urine Nitrite Negative (Negative) Urine Bilirubin Negative (Negative) Urine Urobilinogen <2.0 (<2.0) mg/dL Ur Leukocyte Esterase Trace H (Negative) Urine RBC <1 (0-5) /hpf Urine WBC 2 (0-5) /hpf Ur Squamous Epith Cells 1 (0-4) /hpf Urine HCG, Qual Not Detected (Not Detectd) Salicylates mg/dL Urine Opiates Screen Not Detected (NotDetected) Ur Oxycodone Screen Not Detected (NotDetected) Urine Methadone Screen Not Detected (NotDetected) Ur Propoxyphene Screen Not Detected (NotDetected) Acetaminophen ug/mL Ur Barbiturates Screen Not Detected (NotDetected) U Tricyclic Antidepress Detected H (NotDetected) Ur Phencyclidine Scrn Not Detected (NotDetected) Ur Amphetamines Screen Not Detected (NotDetected) U Methamphetamines Scrn Not Detected (NotDetected) U Benzodiazepines Scrn Not Detected (NotDetected) Urine Cocaine Screen Not Detected (NotDetected) U Marijuana (THC) Screen Not Detected (NotDetected) Serum Alcohol mg/dL 11/25/20 Range/Units 16:11 WBC (4.0-11.0) k/uL RBC (3.80-5.40) m/uL Hgb (11.4-16.0) gm/dL Hct (34.0-46.0) % MCV (80.0-100.0) fL MCH (25.0-35.0) pg MCHC (31.0-37.0) g/dL RDW (11.5-15.5) % Plt Count (150-450) k/uL MPV Neutrophils % % Lymphocytes % % Monocytes % % Eosinophils % % Basophils % % Neutrophils # (1.3-7.7) k/uL Lymphocytes # (1.0-4.8) k/uL Monocytes # (0-1.0) k/uL Eosinophils # (0-0.7) k/uL Basophils # (0-0.2) k/uL Sodium 141 (137-145) mmol/L Potassium 3.8 (3.5-5.1) mmol/L Chloride 109 H (98-107) mmol/L Carbon Dioxide 21 L (22-30) mmol/L Anion Gap 11 mmol/L BUN 14 (7-17) mg/dL Creatinine 0.56 (0.52-1.04) mg/dL Est GFR (CKD-EPI)AfAm >90 (>60 ml/min/1.73 sqM) Est GFR (CKD-EPI)NonAf >90 (>60 ml/min/1.73 sqM) Glucose 123 H (74-99) mg/dL Osmolality 293 (280-301) mosm/kg Calcium 10.3 H (8.4-10.2) mg/dL Total Bilirubin 0.6 (0.2-1.3) mg/dL AST 17 (14-36) U/L ALT 13 (4-34) U/L Alkaline Phosphatase 60 (38-126) U/L Total Protein 7.6 (6.3-8.2) g/dL Albumin 4.7 (3.5-5.0) g/dL Urine Color Urine Appearance (Clear) Urine pH (5.0-8.0) Ur Specific [place] (1.001-1.035) Urine Protein (Negative) Urine Glucose (UA) (Negative) Urine Ketones (Negative) Urine Blood (Negative) Urine Nitrite (Negative) Urine Bilirubin (Negative) Urine Urobilinogen (<2.0) mg/dL Ur Leukocyte Esterase (Negative) Urine RBC (0-5) /hpf Urine WBC (0-5) /hpf Ur Squamous Epith Cells (0-4) /hpf Urine HCG, Qual (Not Detectd) Salicylates <1.0 mg/dL Urine Opiates Screen (NotDetected) Ur Oxycodone Screen (NotDetected) Urine Methadone Screen (NotDetected) Ur Propoxyphene Screen (NotDetected) Acetaminophen <10.0 ug/mL Ur Barbiturates Screen (NotDetected) U Tricyclic Antidepress (NotDetected) Ur Phencyclidine Scrn (NotDetected) Ur Amphetamines Screen (NotDetected) U Methamphetamines Scrn (NotDetected) U Benzodiazepines Scrn (NotDetected) Urine Cocaine Screen (NotDetected) U Marijuana (THC) Screen (NotDetected) Serum Alcohol <10 mg/dL Disposition Clinical Impression: Antipsychotic overdose, Suicidal overdose Disposition: ADMITTED IP TO THIS HOSP Condition: Fair Referrals: Sharmaine Santiago MD [Primary Care Provider] - 1-2 days
[2020-11-25 16:18] LABS: Basophils % (A) 0 %; Eosinophils # (A) 0.1 k/uL (0-0.7); Eosinophils % (A) 1 %; HCT 42.6 % (34.0-46.0); HGB 14.5 gm/dL (11.4-16.0); Lymphocytes # (A) 1.5 k/uL (1.0-4.8); Lymphocytes % (A) 16 %; MCHC 34.1 g/dL (31.0-37.0); MCV 88.1 fL (80.0-100.0); Mean Platelet Volume 7.8; Monocytes # (A) 0.4 k/uL (0-1.0); Monocytes % (A) 4 %; Neutrophils # (A) 7.1 k/uL (1.3-7.7); Neutrophils % (A) 78 %; Platelet Count 223 k/uL (150-450); RBC 4.84 m/uL (3.80-5.40); RDW 12.1 % (11.5-15.5); WBC 9.1 k/uL (4.0-11.0)
[2020-11-25 16:19] LABS: Appearance,Urine Clear (Clear); Bilirubin,Urine Negative (Negative); Blood,Urine Negative (Negative); Color,Urine Colorless; Glucose,Urine (UA) Negative (Negative); Ketones,Urine Negative (Negative); Leukocyte Esterase,Urine Trace (Negative); Nitrite,Urine Negative (Negative); Protein,Urine Negative (Negative); RBC,Urine <1 /hpf (0-5); Specific Gravity,Urine 1.001 (1.001-1.035); Squamous Epithelial Cell,Urine 1 /hpf (0-4); Urobilinogen,Urine <2.0 mg/dL (<2.0); WBC,Urine 2 /hpf (0-5)
[2020-11-25 16:29] LABS: ALT 13 U/L (4-34); AST 17 U/L (14-36); Acetaminophen <10.0 ug/mL; African American GFR (CKD) >90 (>60 ml/min/1.73 sqM); Albumin 4.7 g/dL (3.5-5.0); Alcohol <10 mg/dL; Alkaline Phosphatase 60 U/L (38-126); Anion Gap 11 mmol/L; Blood Urea Nitrogen 14 mg/dL (7-17); Calcium 10.3 mg/dL (8.4-10.2); Carbon Dioxide 21 mmol/L (22-30); Chloride 109 mmol/L (98-107); Glucose 123 mg/dL (74-99); Non-African American GFR(CKD) >90 (>60 ml/min/1.73 sqM); Potassium 3.8 mmol/L (3.5-5.1); Salicylate <1.0 mg/dL; Sodium 141 mmol/L (137-145); Total Bilirubin 0.6 mg/dL (0.2-1.3); Total Protein 7.6 g/dL (6.3-8.2)
[2020-11-25 16:31] LABS: Amphetamine Screen,Urine Not Detected (NotDetected); Benzodiazepines Screen,Urine Not Detected (NotDetected); Cocaine Screen,Urine Not Detected (NotDetected); Opiate Screen,Urine Not Detected (NotDetected); Phencyclidine Screen,Urine Not Detected (NotDetected); Tricyclic Antidepressant,Urine Detected (NotDetected); Urn Cannabinoid Scrn Not Detected (NotDetected)
[2020-11-25 16:32] LABS: Barbiturate Screen,Urine Not Detected (NotDetected); Methadone Screen, Urine Not Detected (NotDetected); Oxycodone Screen, Urine Not Detected (NotDetected)
[2020-11-25] MEDS ORDERED: NALOXONE 0.4 MG/ML 1 ML VIAL IV PRN (17:57)
[2020-11-25] MEDS ORDERED: SODIUM CHLORIDE 0.9% 1,000 ML IV SCH (18:00)
[2020-11-25] MEDS: MAGNESIUM OXIDE 400 MG TAB PO STA ×2 (19:25→19:30)
[2020-11-25] MEDS ORDERED: MAGNESIUM OXIDE 400 MG TAB PO STA (19:30)
[2020-11-26 09:37] VITALS: RESP 18
--- NOTE | 2020-11-26 14:29 | P.HPIM ---
History of Present Illness H&P Date: 11/26/20 HISTORY OF PRESENT ILLNESS This is a 20-year-old female patient of Dr. Santiago with past medical history of depression, bipolar disorder, history of anemia. Patient states that she took too many Seroquel that she was trying to kill herself. She states she takes Seroquel for anxiety. She denies previous episodes of suicide attempts were tried to run away from home when she was in seventh grade. She states that she has been having trouble getting along with her mother. She has taken a year of college and now planning to move in with a friend. She states she has taken Zoloft but it does not seem to be helping and she is no longer taking it and took herself off it. Patient has been hemodynamically stable. . CBC was unremarkable. Electrolytes unremarkable, CO2 21, creatinine 0.56. Blood sugar 123. Calcium 10.3. Magnesium 1.9. Liver function tests were normal. Urinalysis negative for infection. Salicylate level, acetaminophen level, serum alcohol unremarkable. Urine drug screen was positive for tricyclic antidepressants. Chronic virus not detected. Patient is status post 1 L of IV fluids and magnesium oxide. Patient is in the emergency center waiting for a Medr bed, psychiatry on consult. Patient is medically cleared for transfer to the mental health unit. REVIEW OF SYSTEMS Constitutional: No fever, no chills, no night sweats. No weight change. No weakness, fatigue or lethargy. No daytime sleepiness. EENT: No headache. No blurred vision or double vision, no loss of vision. No loss of Hearing, no ringing in the ears, no dizziness. No nasal drainage or congestion. No epistaxis. No sore throat. Lungs: No shortness of breath, cough, no sputum production. No wheezing. Cardiovascular: No chest pain, no lower extremity edema. No palpitations. No paroxysmal nocturnal dyspnea. No orthopnea. No lightheadedness or dizziness. No syncopal episodes. Abdominal: No abdominal pain. No nausea, vomiting. No diarrhea. No constipation. No bloody or tarry stools.. No loss of appetite. Genitourinary: No dysuria, increased frequency, urgency. No urinary retention. Musculoskeletal: No myalgias. No muscle weakness, no gait dysfunction, no frequent falls. No back pain. No neck pain. Integumentary: No wounds, no lesions. No rash or pruritus. No unusual bruising. No change in hair or nails. Neurologic: No aphasia. No facial droop. No change in mentation. No head injury. No headache. No paralysis. No paresthesia. Psychiatric: Reports depression. No anxiety. No mood swings. Reported suicidal ideation. Endocrine: No abnormal blood sugars. No weight change. No excessive sweating or thirst. No cold intolerance. SOCIAL HISTORY Patient is a lifelong nonsmoker, rare alcohol use. She states she uses marijuana daily. No other illicit drug use. FAMILY HISTORY Mother is alive in her 40s with history of COPD. Patient does not know her father. Patient's 4 siblings with no major medical problems. She has one son. PHYSICAL EXAMINATION Gen: This is a disheveled appearing 20-year-old female. She is resting on the ER stretcher and appears to be comfortable and in no acute distress. primary care provider is at the bedside. HEENT: Head is atraumatic, normocephalic. Pupils equal, round. Sclerae is anict michael. NECK: Supple. No JVD. No lymphadenopathy. No thyromegaly. LUNGS: Clear to auscultation. No wheezes or rhonchi. No intercostal retractions. HEART: Regular rate and rhythm. No murmur. ABDOMEN: Soft. Bowel sounds are present. No masses. No tenderness. EXTREMITIES: No pedal edema. No calf tenderness. NEUROLOGICAL: Patient is awake, alert and oriented x3. Cranial nerves 2 through 12 are grossly intact. ASSESSMENT AND PLAN 1. Overdose with Seroquel. IV fluids changed to saline lock, consult with psychiatry with anticipated need for inpatient psychiatric services. Continue drug safety physician. 2. Generalized anxiety disorder and bipolar disorder. Patient has been on Seroquel 100 mg at bedtime. Patient has stopped taking Zoloft.. 3. Daily marijuana use. Patient is Observation status. DISCHARGE PLAN Anticipate transfer to the MHU. Patient is medically cleared for discharge to the mental health unit. Impression and plan of care have been directed as dictated by the signing physician. Ruby Jacobsen nurse practitioner acting as scribe for signing physician. Past Medical History Past Medical History: GERD/Reflux Additional Past Medical History / Comment(s): Current stomach ulcer. History of Any Multi-Drug Resistant Organisms: None Reported Past Surgical History: No Surgical Hx Reported Additional Past Surgical History / Comment(s): Liposuction. Past Anesthesia/Blood Transfusion Reactions: No Reported Reaction Past Psychological History: Anxiety, Bipolar Smoking Status: Never smoker Past Alcohol Use History: Occasional Past Drug Use History: Marijuana Additional Drug Use History / Comment(s): Uses Marijuana twice daily. Aware no use 24 hrs prior to procedure. - Past Family History Mother Family Medical History: No Reported History Additional Family Medical History / Comment(s): "Has Ovarian Cancer Gene." Medications and Allergies Home Medications Medication Instructions Recorded Confirmed Type QUEtiapine [SEROquel] 100 mg PO HS 06/02/20 11/25/20 History Sertraline [Zoloft] 75 mg PO DAILY 11/25/20 11/25/20 History Allergies Allergy/AdvReac Type Severity Reaction Status Date / Time dextromethorphan HBr Allergy Rash/Hives Verified 11/25/20 17:47 [From Delsym Cough & Cold] doxylamine Allergy Rash/Hives Verified 11/25/20 17:47 [From Delsym Cough & Cold] honey Allergy Rash/Hives Verified 11/25/20 17:47 Physical Exam Vitals: Vital Signs Temp Pulse Pulse Resp BP BP Pulse Ox 11/26/20 08:00 97.8 F 89 18 112/71 98 11/26/20 06:02 81 16 93/50 97 11/26/20 02:00 86 16 100/58 95 11/26/20 00:00 96 16 118/71 97 11/25/20 20:00 98.1 F 105 H 16 117/75 98 11/25/20 17:55 90 18 123/71 99 11/25/20 17:00 100 18 124/73 95 11/25/20 15:56 98 F 101 H 18 147/89 100 Intake and Output 11/25/20 11/26/20 11/26/20 22:59 06:59 14:59 Other: Weight 65.771 kg Results CBC & Chem 7: 11/25/20 16:11 11/25/20 20:20 Labs: Abnormal Lab Results - Last 24 Hours (Table) 11/25/20 11/25/20 Range/Units 16:11 16:11 Chloride 109 H (98-107) mmol/L Carbon Dioxide 21 L (22-30) mmol/L Glucose 123 H (74-99) mg/dL Calcium 10.3 H (8.4-10.2) mg/dL Ur Leukocyte Esterase Trace H (Negative) U Tricyclic Antidepress Detected H (NotDetected)
--- NOTE | 2020-11-26 15:09 | P.CN ---
Psychiatric Consult - . Consult date: 11/26/20 Consult:: 11/26/20 14:16 IDENTIFYING DATA: This patient is a 20-year-old female who currently lives with her mother and siblings in a house. 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 REASON FOR REFERRAL: Psychiatry was consulted for suicide attempt HISTORY OF PRESENT ILLNESS: The patient presented to the hospital yesterday after a overdose on 11 Seroquel tablets of 100 mg each according to ER report. Patient had apparently claimed at that time that she did have a suicide attempt and was attempting to end her life. Patient apparently had called EMS herself after taking the tablets and was tachycardic in the ER. Patient's UA was negative and UDS was positive for TCAs. Patient apparently has a history of bipolar disorder was previously on Seroquel and Zoloft. Patients nurse claims that patient has been fairly cooperative however sleeping. Patient had a one-to-one sitter at her side. Patient spoke about her bipolar disorder and being off medication since she gave to her son 2 years ago. She states that she mainly has racing thoughts at nighttime and finding it hard to sleep. She claims that she does not have a psychiatrist and has not been following up. She claims that she was having an argument with her mother mainly about her living arrangement in the basement and claimed that she has stressors including trying to find an apartment for her and her son. She states that she drove away from the house and overdosed in her car and then immediately regretted it when she was at her grandparents house. She describes history of manic episodes in the past approximately once a month . At this time patient denies any suicidal or homical ideations, intent or plan. Patient denies any auditory, visual hallucinations and denies any paranoia or delusions. Patients admits to using cannabis daily and alcohol occasionally. She denies any cigarette use. PAST PSYCHIATRIC HISTORY: Patient has a a history of bipolar disorder. She was previously on Zoloft and Seroquel. She was previously psychiatrically hospitalized 4 years ago at [facility]. Patient denies any psychiatric outpatient follow-up. She claimed that she had one other suicide attempt in the seventh grade where she ran away. She currently gets her medications prescribed by her PCP Dr. Santiago. Past Medical History: GERD/Reflux Additional Past Medical History / Comment(s): Current stomach ulcer. ALLERGIES: as per EMR. CHEMICAL DEPENDENCY HISTORY: as per HPI. FAMILY PSYCHIATRIC/SUBSTANCE USE HISTORY: Claims that her mother has bipolar disorder SOCIAL HISTORY: Patient was born and raised in [place] and then moved to [place]. She states that she completed high school and 2 years of college. 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 She denies any legal history. She has one son is single and lives with her mother and siblings.. MENTAL STATUS EXAM: General Appearance: Patient appears to be thin, stated age is alert, attempts to be cooperative. Patient appears to have fair hygiene and grooming wearing hospital gown with poor eye contact. Behavior: Patient is calmly lying in bed without any agitated behavior. Speech: Patient's speech is fluent and nonpressured. Soft tone Mood/Affect: Patient reports their mood is "mellow now", affect is congruent Suicidality/Homicidality: Patient denies having any suicidal or homicidal ideation intent or plan. Perceptions: Patient denies any visual hallucinations and denies any auditory hallucinations Though content/process: There is no evidence of any delusional thought content and thought process is linear and goal-directed. Minimizes her symptoms. Memory and concentration: AOX3, grossly intact for the purposes of this session. Can spell "WORLD" backwards Judgment and insight: poor IMPRESSIONS: Bipolar disorder, current episode depressed Noncompliance with medications Cannabis use disorder PLAN: -At this time patient DOES meet criteria for inpatient psychiatric admission. -Delirium precautions recommended with patient including - avoiding use of narcotics and TAR ROOFER sedatives, limit anticholinergic medications when possible, frequent re-orientation, minimize use of restraints, open window shades during the day and close them at night -Would recommend the following medication changes/additions: We'll start patient on Lamictal 25 mg twice a day for mood stabilization/depression. Seroquel 50 mg daily at bedtime for mood stabilization/insomnia. -Continue 1:1 sitter for safety and continue with suicide and elopement precautions. Sitter should be continued until patient is admitted to the mental health unit. -Cannot leave AMA at this time. Patient will need a petition and certification if attempting to leave AMA. -When medically stable, patient is eligible for transfer to a psych bed when available. -Communicated plan to patient's nurse -Psychiatry will sign off at this time -Please contact with any questions. 11/26/20 15:02
[2020-11-26 16:57] VITALS: TEMP 98.4
[2020-11-26 17:33] LABS: Glucose,Whole Blood 101 mg/dL (75-99)
[2020-11-26] MEDS ORDERED: QUEtiapine 50 MG TAB PO SCH (21:00)
[2020-11-26] MEDS: lamoTRIgine 25 MG TAB PO SCH ×2 (23:23→23:34)
[2020-11-27 00:32] VITALS: BP 111/71; PULSE 70
== END 2020-11-27 00:34 | disposition other institution (70) ==
LOC: EC 15:36 → 4SSUR 17:57 → 3SCARD 21:09 → 1SOBS 11-26 20:27
PROVIDERS: ADMIT Internal Medicine Geriatric Medicine; ATTEND Internal Medicine Geriatric Medicine
DX: T43.592A Poisoning by other antipsychotics and neuroleptics, intentional self-harm, initial encounter (principal); F31.9 Bipolar disorder, unspecified; Z20.822 Contact with and (suspected) exposure to COVID-19; G47.00 Insomnia, unspecified; K21.9 Gastro-esophageal reflux disease without esophagitis; K25.9 Gastric ulcer, unspecified as acute or chronic, without hemorrhage or perforation; T43.226A Underdosing of selective serotonin reuptake inhibitors, initial encounter; Z79.899 Other long term (current) drug therapy; Z88.8 Allergy status to other drugs, medicaments and biological substances; Z91.018 Allergy to other foods; F41.1 Generalized anxiety disorder; Z91.14 Patient's other noncompliance with medication regimen; Z91.5 Personal history of self-harm; Z15.02 Genetic susceptibility to malignant neoplasm of ovary; Y92.89 Other specified places as the place of occurrence of the external cause; Z82.5 Family history of asthma and other chronic lower respiratory diseases; Z74.3 Need for continuous supervision
CPT/HCPCS: 82075; 96360; 99285; 36415; 93005; 83930; 80053; 83735; 84132; 85025; 81001; 81025; 80306; 80143; 87635 ×2; 80179; G0378 ×3; G0480; 80320

== ENCOUNTER 2020-11-26 23:56 | Inpatient (IN) | payer MEDICAID ==
[2020-11-27] MEDS ORDERED: LORazepam 1 MG TAB PO PRN (00:14)
[2020-11-27] MEDS ORDERED: ACETAMINOPHEN TAB 325 MG TAB PO PRN (00:14)
[2020-11-27] MEDS ORDERED: MAG HYDROX/AL HYDROX/SIMETH 30 ML CUP PO PRN (00:14)
[2020-11-27] MEDS ORDERED: MAGNESIUM HYDROXIDE 2,400 MG/10 ML CUP PO PRN (00:14)
[2020-11-27] MEDS ORDERED: LORazepam 2 MG/ML INJ IM PRN (00:17)
[2020-11-27] MEDS ORDERED: haloperidoL 5 MG TAB PO PRN (00:18)
[2020-11-27] MEDS ORDERED: HALOPERIDOL LACTATE 5 MG/ML 1 ML VIAL IM PRN (00:18)
[2020-11-27] MEDS ORDERED: QUEtiapine 50 MG TAB PO SCH ×2 (00:45→21:00)
[2020-11-27 01:47] VITALS: BP 111/68; PULSE 84; RESP 18; TEMP 98
[2020-11-27] MEDS ORDERED: lamoTRIgine 25 MG TAB PO SCH (09:00)
[2020-11-27] MEDS ORDERED: NICOTINE 14MG/24HR PATCH TRANSDERM SCH (09:00)
--- NOTE | 2020-11-27 11:22 | P.HP ---
Psychiatric H&P - . H&P Date: 11/27/20 History & Physical: Allergies Allergy/AdvReac Type Severity Reaction Status Date / Time dextromethorphan HBr Allergy Rash/Hives Verified 11/25/20 17:47 From Delsym Cough & Cold doxylamine Allergy Rash/Hives Verified 11/25/20 17:47 From Delsym Cough & Cold honey Allergy Rash/Hives Verified 11/25/20 17:47 Vital Signs Temp 98.0 F 11/27/20 01:28 Pulse 84 11/27/20 01:28 Resp 18 11/27/20 01:28 BP 111/68 11/27/20 01:28 Pulse Ox Intake & Output 11/26/20 11/27/20 11/27/20 18:59 06:59 18:59 Weight 65.77 kg 11/27/20 10:33 IDENTIFYING DATA: This patient is a 20-year-old female who currently lives with her mother and siblings in a house. 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 HISTORY OF PRESENT ILLNESS: The patient presented to the hospital initially after a overdose on 11 Seroquel tablets of 100 mg each according to ER report. Patient had apparently claimed at that time that she did have a suicide attempt and was attempting to end her life. Patient apparently had called EMS herself after taking the tablets and was tachycardic in the ER. Patient's UA was negative and UDS was positive for TCAs. Patient apparently has a history of bipolar disorder was previously on Seroquel and Zoloft. Patient was seen by psychiatry consult liaison for evaluation. At that time patient spoke about her bipolar disorder and being off medication since she gave to her son 2 years ago. She states that she mainly has racing thoughts at nighttime and finding it hard to sleep. She claims that she does not have a psychiatrist and has not been following up. She claims that she was having an argument with her mother mainly about her living arrangement in the basement and claimed that she has stressors including trying to find an apartment for her and her son. She states that she drove away from the house and overdosed in her car and then immediately regretted it when she was at her grandparents house. She describes history of manic episodes in the past approximately once a month . Patient was seen after being admitted to the mental health unit today for evaluation. Patient continues to have a soft tone of voice however was fairly cooperative. She states that she took the medication last night was able to sleep fairly with the Seroquel at 50 mg. She is agreeable to continue on with Lamictal. She is denying any depression today. At this time patient denies any suicidal or homical ideations, intent or plan. Patient denies any auditory, visual hallucinations and denies any paranoia or delusions. Patients admits to using cannabis daily and alcohol occasionally. She denies any cigarette use. PAST PSYCHIATRIC HISTORY: Patient has a a history of bipolar disorder. She was previously on Zoloft and Seroquel. She was previously psychiatrically hospitalized 4 years ago at [facility]. Patient denies any psychiatric outpatient follow-up. She claimed that she had one other suicide attempt in the seventh grade where she ran away. She currently gets her medications prescribed by her PCP Dr. Santiago. Past Medical History: GERD/Reflux Additional Past Medical History / Comment(s): Current stomach ulcer. ALLERGIES: as per EMR. CHEMICAL DEPENDENCY HISTORY: as per HPI. FAMILY PSYCHIATRIC/SUBSTANCE USE HISTORY: Claims that her mother has bipolar disorder SOCIAL HISTORY: Patient was born and raised in [place] and then moved to [place]. She states that she completed high school and 2 years of college. 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 She denies any legal history. She has one son is single and lives with her mother and siblings.. MENTAL STATUS EXAM: General Appearance: Patient appears to be thin, stated age is alert, attempts to be cooperative. Patient appears to have fair hygiene and grooming wearing hospital gown with poor eye contact. Behavior: Patient is calmly lying in bed without any agitated behavior. Speech: Patient's speech is fluent and nonpressured. Soft tone Mood/Affect: Patient reports their mood is "a bit better", affect is congruent Suicidality/Homicidality: Patient denies having any suicidal or homicidal ideation intent or plan. Perceptions: Patient denies any visual hallucinations and denies any auditory hallucinations Though content/process: There is no evidence of any delusional thought content and thought process is linear and goal-directed. Minimizes her symptoms. Memory and concentration: AOX3, grossly intact for the purposes of this session. Can spell "WORLD" backwards Judgment and insight: poor, improving mildly IMPRESSIONS: Bipolar disorder, current episode depressed Noncompliance with medications Cannabis use disorder STRENGTHS/WEAKNESSES: strength is that patient is resilient. Weakness is that patient has poor judgment and is impulsive INTELLECT: average PLAN: -Patient is admitted under voluntary status to MHU for stabilization of psychiatric symptoms and safety. Patient has signed adult voluntary form and medication consent and is placed in patient's chart. -Medications : Will start patient on Seroquel 50 mg daily at bedtime for mood stabilization/insomnia. Lamictal 25 mg twice a day for mood stabilization/depression. Plan will be to increase Lamictal to 50 mg twice a day throughout the weekend. Spoke with patient once again about the risks of rash and to continue monitoring her skin, patient verbally understood and agreed. -Ativan and Haldol PRN for agitation/aggression -Patient was counselled on substance abuse and desired to cut back on use -Patient was informed of the risks, benefits and side effects of the medication and patient verbally consented to taking the medications. Patient signed med consent form and was placed in chart. -Internal Medicine consult to perform medical evaluation and physical. -NRT - not needed as patient does not smoke -SW on board for discharge planning. Encourage patient to participate in groups to work on coping skills. 11/27/20 11:19
--- NOTE | 2020-11-27 13:20 | P.MDCNMH ---
History of Present Illness H&P Date: 11/27/20 HISTORY OF PRESENT ILLNESS This is a 20-year-old female patient of Dr. Santiago with past medical history of depression, bipolar disorder, history of anemia. Patient initially presented on 11/25 stating that she took too many Seroquel that she was trying to kill herself. She states she takes Seroquel for anxiety. She denies previous episodes of suicide attempts were tried to run away from home when she was in seventh grade. She states that she has been having trouble getting along with her mother. She has taken a year of college and now planning to move in with a friend. She states she has taken Zoloft but it does not seem to be helping and she is no longer taking it and took herself off it. Patient has been hemodynamically stable. CBC was unremarkable. Electrolytes unremarkable, CO2 21, creatinine 0.56. Blood sugar 123. Calcium 10.3. Magnesium 1.9. Liver function tests were normal. Urinalysis negative for infection. Salicylate level, acetaminophen level, serum alcohol unremarkable. Urine drug screen was positive for tricyclic antidepressants. Chronic virus not detected. Patient is status post 1 L of IV fluids and magnesium oxide. Patient is in the emergency center waiting for a [facility] bed, psychiatry on consult. Patient was medically cleared for transfer to the mental health unit. Patient is seen today on the mental health unit. She is meeting with social media sr strategy manager. She denies any physical/medical complaints today. Patient has been a febrile, heart rate 90, blood pressure 108/61, pulse ox 90% on room air. Repeat chronic virus PCR not detected. REVIEW OF SYSTEMS Constitutional: No fever, no chills, no night sweats. No weight change. No weakness, fatigue or lethargy. No daytime sleepiness. EENT: No headache. No blurred vision or double vision, no loss of vision. No loss of Hearing, no ringing in the ears, no dizziness. No nasal drainage or congestion. No epistaxis. No sore throat. Lungs: No shortness of breath, cough, no sputum production. No wheezing. Cardiovascular: No chest pain, no lower extremity edema. No palpitations. No paroxysmal nocturnal dyspnea. No orthopnea. No lightheadedness or dizziness. No syncopal episodes. Abdominal: No abdominal pain. No nausea, vomiting. No diarrhea. No constipation. No bloody or tarry stools.. No loss of appetite. Genitourinary: No dysuria, increased frequency, urgency. No urinary retention. Musculoskeletal: No myalgias. No muscle weakness, no gait dysfunction, no frequent falls. No back pain. No neck pain. Integumentary: No wounds, no lesions. No rash or pruritus. No unusual bruising. No change in hair or nails. Neurologic: No aphasia. No facial droop. No change in mentation. No head injury. No headache. No paralysis. No paresthesia. Psychiatric: Reports depression. No anxiety. No mood swings. Denies suicidal ideation. Endocrine: No abnormal blood sugars. No weight change. No excessive sweating or thirst. No cold intolerance. SOCIAL HISTORY Patient is a lifelong nonsmoker, rare alcohol use. She states she uses marijuana daily. No other illicit drug use. FAMILY HISTORY Mother is alive in her 40s with history of COPD. Patient does not know her father. Patient's 4 siblings with no major medical problems. She has one son. PHYSICAL EXAMINATION Gen: This is a disheveled appearing 20-year-old female. She is seated in a chair on the mental health unit. HEENT: Head is atraumatic, normocephalic. Pupils equal, round. Sclerae is anicteric. NECK: Supple. No JVD. No lymphadenopathy. No thyromegaly. LUNGS: Clear to auscultation. No wheezes or rhonchi. No intercostal retractions. HEART: Regular rate and rhythm. No murmur. ABDOMEN: Soft. Bowel sounds are present. No masses. No tenderness. EXTREMITIES: No pedal edema. No calf tenderness. NEUROLOGICAL: Patient is awake, alert and oriented x3. Cranial nerves 2 through 12 are grossly intact. ASSESSMENT AND PLAN 1. Overdose with Seroquel. Patient has been stabilized and transferred to the mental health unit. Continue current management per psychiatrist. 2. Generalized anxiety disorder and bipolar disorder. Continue plan per psychiatrist.. 3. Daily marijuana use. DISCHARGE PLAN Home. Patient will need follow-up with Dr. Santiago one week after discharge from the mental health unit. Impression and plan of care have been directed as dictated by the signing physician. Ruby Jacobsen nurse practitioner acting as scribe for signing physician. Past Medical History Past Medical History: GERD/Reflux Additional Past Medical History / Comment(s): Current stomach ulcer. History of Any Multi-Drug Resistant Organisms: None Reported Past Surgical History: No Surgical Hx Reported Additional Past Surgical History / Comment(s): Liposuction. Past Anesthesia/Blood Transfusion Reactions: No Reported Reaction Past Psychological History: Anxiety, Bipolar Smoking Status: Never smoker Past Alcohol Use History: Occasional Past Drug Use History: Marijuana Additional Drug Use History / Comment(s): Uses Marijuana twice daily. Aware no use 24 hrs prior to procedure. - Past Family History Mother Family Medical History: No Reported History Additional Family Medical History / Comment(s): "Has Ovarian Cancer Gene." Medications and Allergies Home Medications Medication Instructions Recorded Confirmed Type QUEtiapine [SEROquel] 100 mg PO HS 06/02/20 11/25/20 History Sertraline [Zoloft] 75 mg PO DAILY 11/25/20 11/25/20 History Allergies Allergy/AdvReac Type Severity Reaction Status Date / Time dextromethorphan HBr Allergy Rash/Hives Verified 11/25/20 17:47 [From Delsym Cough & Cold] doxylamine Allergy Rash/Hives Verified 11/25/20 17:47 [From Delsym Cough & Cold] honey Allergy Rash/Hives Verified 11/25/20 17:47 Physical Exam Vitals: Vital Signs Temp Pulse Resp BP 11/27/20 01:28 98.0 F 84 18 111/68 Intake and Output 11/26/20 11/27/20 11/27/20 22:59 06:59 14:59 Other: Weight 65.77 kg Cranial Nerve Examination - Cranial Nerves Cranial Nerve I- Olfactory: Intact Cranial Nerve II- Optic: Intact Cranial Nerve III- Oculomotor: Intact Cranial Nerve IV- Trochlear: Intact Cranial Nerve V- Trigeminal: Intact Cranial Nerve - Abducens: Intact Cranial Nerve VII- Facial: Intact Cranial Nerve VIII- Auditory: Intact Cranial Nerve IX- Glossopharyngeal: Intact Cranial Nerve X- Vagus: Intact Cranial Nerve XI- Accessory: Intact Cranial Nerve XII- Hypoglossal: Intact
[2020-11-27] MEDS: lamoTRIgine 25 MG TAB PO SCH (19:56)
[2020-11-28] MEDS: lamoTRIgine 25 MG TAB PO SCH ×2 (07:51→21:56)
[2020-11-28] MEDS ORDERED: FLUCONAZOLE 150 MG TAB PO ONE (13:05)
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
[2020-11-28 18:23] LABS: Hemoglobin A1C 4.8 % (4.0-6.0)
[2020-11-28 19:33] LABS: Chol/HDL Ratio 2.57; LDL Cholesterol,Calculated 46.4 mg/dL (0.0-131.0); VLDL Calculation 25.6 mg/dL (5.00-40.00)
[2020-11-28] MEDS: QUEtiapine 200 MG TAB PO SCH (21:56)
[2020-11-29 07:51] LABS: Basophils % (A) 0 %; Eosinophils # (A) 0.2 k/uL (0-0.7); Eosinophils % (A) 2 %; HCT 44.5 % (34.0-46.0); HGB 15.4 gm/dL (11.4-16.0); Lymphocytes # (A) 2.9 k/uL (1.0-4.8); Lymphocytes % (A) 37 %; MCH 30.5 pg (25.0-35.0); MCHC 34.7 g/dL (31.0-37.0); MCV 88.1 fL (80.0-100.0); Mean Platelet Volume 7.6; Monocytes # (A) 0.4 k/uL (0-1.0); Monocytes % (A) 5 %; Neutrophils # (A) 4.2 k/uL (1.3-7.7); Neutrophils % (A) 53 %; Platelet Count 279 k/uL (150-450); RBC 5.05 m/uL (3.80-5.40); RDW 12.7 % (11.5-15.5)
[2020-11-29 08:12] LABS: ALT 13 U/L (4-34); AST 17 U/L (14-36); African American GFR (CKD) >90 (>60 ml/min/1.73 sqM); Albumin 4.7 g/dL (3.5-5.0); Alkaline Phosphatase 48 U/L (38-126); Anion Gap 11 mmol/L; Blood Urea Nitrogen 14 mg/dL (7-17); Calcium 10.5 mg/dL (8.4-10.2); Carbon Dioxide 27 mmol/L (22-30); Chloride 103 mmol/L (98-107); Glucose 91 mg/dL (74-99); Non-African American GFR(CKD) >90 (>60 ml/min/1.73 sqM); Potassium 5.2 mmol/L (3.5-5.1); Sodium 141 mmol/L (137-145); Total Bilirubin 0.6 mg/dL (0.2-1.3); Total Protein 7.7 g/dL (6.3-8.2)
[2020-11-29] MEDS ORDERED: lamoTRIgine 25 MG TAB PO SCH ×3 (09:00→21:00)
--- NOTE | 2020-11-29 13:04 | PN ---
PROGRESS NOTE DATE OF SERVICE: 11/29/2020. CHIEF COMPLAINT: The patient was admitted following overdose of eleven 100-mg Seroquel tablets in an effort to end her life. INTERVAL HISTORY: The patient has been doing fairly well. She had a quiet day yesterday. She comes out on the unit. She interacts with others. She has been attending groups and has seemed to engage reasonably well in the groups. She has been interactive with staff and peers. She notes that she slept fairly well last night. She said she was a little tired this morning, though not to a significant extent. She has been up today and again out and fairly active on the unit. She says she has a better outlook in regard to looking at discharge planning. She notes that at this point she does not have any concrete ideas about what followup she would get, though she does feel that being engaged in therapy and having psychiatry followup for medications would be positive for her. When I reviewed her history, it is documented yesterday she reported periods that typically will last a few weeks to a month where she gets into a manic phase with poor impulse control, poor sleep and high energy. She will often have racing thoughts. She said that the Seroquel does help reduce her racing thoughts. She notes that typically she would come out of a manic phase and go into depression that could last 2 or 3 months. She then will have periods along the way where she could have 2 or 3 months of feeling in a fairly stable mood and then go through a cycle again. She says for the most part much of her life over the last several years has included a lot of mood swings. She tolerates her psychotropic medications. MENTAL STATUS: Patient sat without restlessness. She had good eye contact. She answered questions appropriately. Her thoughts were clear. Her affect was a little constricted. Her mood was quiet though not down or depressed. She did not appear to have elevated mood. She did not appear to be significantly distressed. There was no indication of thought disorder. She voiced no thoughts of harm. Cognition was clear. ASSESSMENT: I will continue the current diagnosis and treatment plan. I will continue psychotropic medications the same. The primary focus has been to increase her Seroquel to a more therapeutic range to address bipolar depression issues. I discussed that the dose may need to go higher in followup to fully stabilize her condition in regard to both opal and depression. At this point, I will continue Lamictal the same. I again noted concerns related to serious rash related to Lamictal, especially in the early phase of titration. We will focus on stabilization and discharge planning. SHAHLA / JESSENIAN: [id number] /
[2020-11-29] MEDS: QUEtiapine 200 MG TAB PO SCH (20:58)
[2020-11-30] MEDS: lamoTRIgine 25 MG TAB PO SCH (08:51)
--- NOTE | 2020-11-30 09:07 | PN ---
PROGRESS NOTE DATE OF SERVICE: 11/30/2020. CHIEF COMPLAINT: The patient was admitted following overdose of 11, 100 mg Seroquel tablets in an effort to end her life. INTERVAL HISTORY: Patient has been doing fairly well. She had a quiet day yesterday. She comes out in the unit. She interacts with others. She has been appropriate in her interactions with staff and peers. She attends groups and seems to participate in a productive manner. She slept well last night. It is noted that she said she did not have any trouble with her evening dose of Seroquel which has been increased. She said also this morning she woke up at a reasonable time and was not feeling tired. She says she has a good mood today and better outlook. She tolerates her psychotropic medications. MENTAL STATUS: Patient sat without restlessness. Eye contact was good. She had a somewhat slow manner, though not significantly so. Her affect was in the reasonable range. She had a quiet mood. She did not appear to be distressed. There was no indication of thought disorder. She voiced no thoughts of harm. Cognition was clear. ASSESSMENT: I will continue the current diagnosis and treatment plan. I will continue psychotropic medications the same. I discussed with the patient that for issues with bipolar depression, there may need to be an increase in her Seroquel as the indicated dose would be 300 mg, though that obviously varies patient by patient. In addition, she was showing manic symptoms we discussed that the dose typically is in the 400-600 mg range. I will defer to Dr. Santizo in regard to titrating up on Lamictal. I did review issues relating to the risk for a rash relating to start of Lamictal. We will focus on stabilization and discharge planning. I anticipate the patient being discharged early in the week. MMODL / IJN: [id number] /
[2020-11-30] MEDS ORDERED: lamoTRIgine 25 MG TAB PO SCH (21:00)
[2020-11-30] MEDS: QUEtiapine 200 MG TAB PO SCH (21:12)
[2020-12-01] MEDS: lamoTRIgine 25 MG TAB PO SCH (08:17)
[2020-12-01] MEDS ORDERED: lamoTRIgine 25 MG TAB PO SCH (09:00)
--- NOTE | 2020-12-01 09:21 | P.DS ---
Providers Date of admission: 11/27/20 00:36 Expected date of discharge: 12/01/20 Attending physician: Norman Santizo MD Consults: 11/27/20 00:14 Consult Physician Routine Consulting Provider: Sharmaine Santiago Consult Reason/Comments: history and physical/medical management Do you want consulting provider notified?: Yes Primary care physician: Sharmaine Santiago - Discharge Diagnosis(es) (1) Bipolar disorder current episode depressed Current Visit: Yes Status: Acute Priority: High (2) Non compliance w medication regimen Current Visit: Yes Status: Acute Priority: Low (3) Cannabis use disorder, mild, abuse Current Visit: Yes Status: Acute Priority: Low Hospital Course: Admission HPI: Admission note was completed by technical document writer "This patient is a 20-year-old female who currently lives with her mother and siblings in a house. 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 The patient presented to the hospital initially after a overdose on 11 Seroquel tablets of 100 mg each according to ER report. Patient had apparently claimed at that time that she did have a suicide attempt and was attempting to end her life. Patient apparently had called EMS herself after taking the tablets and was tachycardic in the ER. Patient's UA was negative and UDS was positive for TCAs. Patient apparently has a history of bipolar disorder was previously on Seroquel and Zoloft. Patient was seen by psychiatry consult liaison for evaluation. At that time patient spoke about her bipolar disorder and being off medication since she gave to her son 2 years ago. She states that she mainly has racing thoughts at nighttime and finding it hard to sleep. She claims that she does not have a psychiatrist and has not been following up. She claims that she was having an argument with her mother mainly about her living arrangement in the basement and claimed that she has stressors including trying to find an apartment for her and her son. She states that she drove away from the house and overdosed in her car and then immediately regretted it when she was at her grandparents house. She describes history of manic episodes in the past approximately once a month . Patient was seen after being admitted to the mental health unit today for evaluation. Patient continues to have a soft tone of voice however was fairly cooperative. She states that she took the medication last night was able to sleep fairly with the Seroquel at 50 mg. She is agreeable to continue on with Lamictal. She is denying any depression today. At this time patient denies any suicidal or homical ideations, intent or plan. Patient denies any auditory, visual hallucinations and denies any paranoia or delusions. Patients admits to using cannabis daily and alcohol occasionally. She denies any cigarette use." Hospital course: Upon admission to the unit patient was initially directable and agreeable to commence treatment and signed adult voluntary form. Patient got along well with other patients on the unit and followed unit protocol. Patient was compliant with the medications and denied any side effects throughout hospital course. Patient was started on Seroquel and titrated up to dose of 200 mg daily at bedtime for mood stabilization/insomnia. Patient was also started on Lamictal and titrated up to dose of 50mg daily for mood stabilization/depression.. Patient spoke of her stressors and engaged in therapy both group and individual. Patient was also seen by medical team for history and physical exam. Throughout the course of the hospitalization patient gradually improved with regards to mood lability, anxiety, sleep and became more future oriented with improved insight and judgment. On the day of discharge patient denied any suicidal or homicidal ideations intent or plan denied any auditory or visual hallucinations. Patient endorsed wanting to live for her child and her future. The patient denied any access to guns or weapons. Patient denied any paranoia and did not endorse any delusions. Patient does not have a significant history of substance abuse however was counseled on abstaining from all substances including alcohol and marijuana. Patient was also counseled on the medications and need for regular compliance and was encouraged to follow-up with their outpatient appointment for mental health and also for primary care. Prior to discharge a family meeting will be arranged by community mental health social worker to answer any questions and ensure safety upon discharge. Mental status exam: General Appearance: Patient appears to be stated age is alert, pleasant, and cooperative. Patient is in no acute distress and has improved hygiene and grooming Behavior: Patient is calmly seated without any agitated behavior. Speech: Patient's speech is fluent and nonpressured. Mood/Affect: Patient reports their mood is "good", affect is congruent and euthymic. Suicidality/Homicidality: Patient denies having any suicidal or homicidal ideation intent or plan. Perceptions: Patient denies any auditory or visual hallucinations. Though content/process: There is no evidence of any delusional thought content and thought process is linear and goal-directed. more future oriented Memory and concentration: AOX3, grossly intact for the purposes of this session. Can spell "WORLD" backwards correctly. Judgment and insight: chronically poor, however has improved with guarded prognosis Impression: Bipolar disorder, current episode depressed Noncompliance with medications Cannabis use disorder mild Plan: -Continue with discharge today as patient has improved and stabilized psychiatrically and is not currently an imminent threat to herself and/or others. Patient will remain at chronically elevated risk for harm to self and/or others due to her impulsivity. -Continue medications: Lamictal 50 mg daily for mood stabilization/depression, Seroquel 200 mg daily at bedtime for insomnia/mood stabilization. -Patient was counseled on the need for medication compliance and appropriate follow-up at mental health and also primary care for medical issues. Patient verbalized understanding and agreed. -Social work to arrange for and conduct family meeting to ensure safety upon discharge and answer any questions/concerns. Social work also to arrange for patients follow up appointments with [facility] for psychiatric care along with follow up with primary care provider. -Patient counseled on abstaining from recreational drugs and marijuana and alcohol. Was informed/educated on the adverse effects on their physical and mental health. Patient verbally agreed and understood. -Patient was instructed to return to the hospital or seek immediate medical care if their psychiatric or medical symptoms do worsen or reoccur. Allergies Allergy/AdvReac Type Severity Reaction Status Date / Time dextromethorphan HBr Allergy Rash/Hives Verified 11/25/20 17:47 [From Delsym Cough & Cold] doxylamine Allergy Rash/Hives Verified 11/25/20 17:47 [From Delsym Cough & Cold] honey Allergy Rash/Hives Verified 11/25/20 17:47 Laboratory Results WBC 8.0 k/uL (4.0-11.0) 11/29/20 07:11 RBC 5.05 m/uL (3.80-5.40) 11/29/20 07:11 Hgb 15.4 gm/dL (11.4-16.0) 11/29/20 07:11 Hct 44.5 % (34.0-46.0) 11/29/20 07:11 MCV 88.1 fL (80.0-100.0) 11/29/20 07:11 MCH 30.5 pg (25.0-35.0) 11/29/20 07:11 MCHC 34.7 g/dL (31.0-37.0) 11/29/20 07:11 RDW 12.7 % (11.5-15.5) 11/29/20 07:11 Plt Count 279 k/uL (150-450) 11/29/20 07:11 MPV 7.6 11/29/20 07:11 Neutrophils % 53 % 11/29/20 07:11 Lymphocytes % 37 % 11/29/20 07:11 Monocytes % 5 % 11/29/20 07:11 Eosinophils % 2 % 11/29/20 07:11 Basophils % 0 % 11/29/20 07:11 Neutrophils # 4.2 k/uL (1.3-7.7) 11/29/20 07:11 Lymphocytes # 2.9 k/uL (1.0-4.8) 11/29/20 07:11 Monocytes # 0.4 k/uL (0-1.0) 11/29/20 07:11 Eosinophils # 0.2 k/uL (0-0.7) 11/29/20 07:11 Basophils # 0.0 k/uL (0-0.2) 11/29/20 07:11 Sodium 141 mmol/L (137-145) 11/29/20 07:11 Potassium 5.2 mmol/L (3.5-5.1) H 11/29/20 07:11 Chloride 103 mmol/L (98-107) 11/29/20 07:11 Carbon Dioxide 27 mmol/L (22-30) 11/29/20 07:11 Anion Gap 11 mmol/L 11/29/20 07:11 BUN 14 mg/dL (7-17) 11/29/20 07:11 Creatinine 0.81 mg/dL (0.52-1.04) 11/29/20 07:11 Est GFR (CKD-EPI)AfAm >90 (>60 ml/min/1.73 sqM) 11/29/20 07:11 Est GFR (CKD-EPI)NonAf >90 (>60 ml/min/1.73 sqM) 11/29/20 07:11 Glucose 91 mg/dL (74-99) 11/29/20 07:[address] Glu mg/dL 91 11/28/20 09:13 Hemoglobin A1c 4.8 % (4.0-6.0) 11/28/20 09:13 Calcium 10.5 mg/dL (8.4-10.2) H 11/29/20 07:11 Total Bilirubin 0.6 mg/dL (0.2-1.3) 11/29/20 07:11 AST 17 U/L (14-36) 11/29/20 07:11 ALT 13 U/L (4-34) 11/29/20 07:11 Alkaline Phosphatase 48 U/L (38-126) 11/29/20 07:11 Total Protein 7.7 g/dL (6.3-8.2) 11/29/20 07:11 Albumin 4.7 g/dL (3.5-5.0) 11/29/20 07:11 Triglycerides 128.0 mg/dL (0.0-149.0) 11/28/20 09:13 Cholesterol 118 mg/dL (0-200) 11/28/20 09:13 LDL Cholesterol, Calc 46.4 mg/dL (0.0-131.0) 11/28/20 09:13 VLDL Cholesterol, Calc 25.60 mg/dL (5.00-40.00) 11/28/20 09:13 HDL Cholesterol 46.0 mg/dL (40.0-60.0) 11/28/20 09:13 Cholesterol/HDL Ratio 2.57 11/28/20 09:13 TSH 0.641 mIU/L (0.465-4.680) 11/28/20 09:13 Vital Signs Temp 98.0 F 11/27/20 01:28 Pulse 84 11/27/20 01:28 Resp 18 11/27/20 01:28 BP 111/68 11/27/20 01:28 Pulse Ox Patient Condition at Discharge: Stable Plan - Discharge Summary Discharge Rx Participant: No New Discharge Prescriptions: New lamoTRIgine [LaMICtal] 50 mg PO DAILY 14 Days tab QUEtiapine [SEROquel] 200 mg PO HS 14 Days tab Acetaminophen Tab [Tylenol] 650 mg PO Q4HR PRN tab PRN Reason: Pain/Discomfort Discontinued QUEtiapine [SEROquel] 100 mg PO HS Sertraline [Zoloft] 75 mg PO DAILY Discharge Medication List Acetaminophen Tab [Tylenol] 650 mg PO Q4HR PRN tab 12/01/20 [Rx] QUEtiapine [SEROquel] 200 mg PO HS 14 Days tab 12/01/20 [Rx] lamoTRIgine [LaMICtal] 50 mg PO DAILY 14 Days tab 12/01/20 [Rx] Follow up Appointment(s)/Referral(s): Sharmaine Santiago MD [Primary Care Provider] - 1 Week Patient Instructions/Handouts: Bipolar Disorder (DC) Activity/Diet/Wound Care/Special Instructions: Activity and diet as tolerated. Avoid the use of street drugs and alcohol. Take all medications as prescribed. When you are in need of refills on your medications please contact your medical provider and/or outpatient psychiatrist to have this done. Please go to scheduled outpatient appointment for aftercare treatment. If symptoms return or become worse, call the crisis line at and/or go to the nearest emergency room for evaluation. Discharge Disposition: HOME SELF-CARE
== END 2020-12-01 13:30 | disposition home or self-care (01) | DRG 918 ==
LOC: 3MHU 11-27 00:36
PROVIDERS: ADMIT Psychiatry & Neurology Psychiatry; ATTEND Psychiatry & Neurology Psychiatry
DX: T43.592A Poisoning by other antipsychotics and neuroleptics, intentional self-harm, initial encounter (principal); F31.30 Bipolar disorder, current episode depressed, mild or moderate severity, unspecified; F41.9 Anxiety disorder, unspecified; F12.10 Cannabis abuse, uncomplicated; G47.00 Insomnia, unspecified; Z91.14 Patient's other noncompliance with medication regimen; Z87.11 Personal history of peptic ulcer disease; Z81.8 Family history of other mental and behavioral disorders; Z79.899 Other long term (current) drug therapy; K21.9 Gastro-esophageal reflux disease without esophagitis; R21 Rash and other nonspecific skin eruption; R00.0 Tachycardia, unspecified; R45.87 Impulsiveness
CPT/HCPCS: 80053; 80061; 83036; 84443; 85025

== ENCOUNTER 2021-12-07 17:46 | Emergency (ER) | payer OTHER ==
[2021-12-07 17:59] VITALS: RESP 18; TEMP 98.2
[2021-12-07] MEDS ORDERED: SODIUM CHLORIDE 0.9% 1,000 ML IV STA (18:22)
[2021-12-07 18:55] LABS: Basophils % (A) 0 %; Eosinophils # (A) 0.2 k/uL (0-0.7); Eosinophils % (A) 2 %; HGB 13.3 gm/dL (11.4-16.0); Lymphocytes # (A) 2.2 k/uL (1.0-4.8); Lymphocytes % (A) 20 %; MCH 29.6 pg (25.0-35.0); MCHC 34.1 g/dL (31.0-37.0); MCV 86.7 fL (80.0-100.0); Mean Platelet Volume 8.1; Monocytes # (A) 0.5 k/uL (0-1.0); Monocytes % (A) 5 %; Neutrophils # (A) 7.7 k/uL (1.3-7.7); Neutrophils % (A) 71 %; Platelet Count 218 k/uL (150-450); RDW 12.8 % (11.5-15.5); WBC 10.8 k/uL (3.8-10.6)
[2021-12-07 19:04] LABS: ALT 17 U/L (4-34); AST 17 U/L (14-36); African American GFR (CKD) >90 (>60 ml/min/1.73 sqM); Albumin 4.5 g/dL (3.5-5.0); Alkaline Phosphatase 58 U/L (38-126); Anion Gap 10 mmol/L; Blood Urea Nitrogen 17 mg/dL (7-17); Calcium 9.2 mg/dL (8.4-10.2); Carbon Dioxide 25 mmol/L (22-30); Chloride 102 mmol/L (98-107); Glucose 91 mg/dL (74-99); Magnesium 1.9 mg/dL (1.6-2.3); Non-African American GFR(CKD) >90 (>60 ml/min/1.73 sqM); Potassium 3.9 mmol/L (3.5-5.1); Sodium 137 mmol/L (137-145); Total Bilirubin 0.4 mg/dL (0.2-1.3); Total Protein 6.9 g/dL (6.3-8.2)
[2021-12-07 19:17] LABS: INR 0.9 (<1.2); Partial Thromboplastin Time 23.7 sec (22.0-30.0)
--- NOTE | 2021-12-07 20:05 | CT ---
EXAMINATION TYPE: CT brain wo con CT DLP: 1033.4 mGycm, Automated exposure control for dose reduction was used. DATE OF EXAM: 12/07/2021 7:59 PM COMPARISON: None. CLINICAL INDICATION:Female, 21 years old with history of head injury, Syncope with head injury yester day TECHNIQUE: Brain: Axial CT images of the brain were obtained with coronal and sagittal reformats created and rev iewed. Contrast used: None. Oral contrast used: None. FINDINGS: Brain: Extra-axial spaces: No abnormal extra-axial fluid collections. Ventricular system: Within normal limits Cerebral parenchyma: No acute intraparenchymal hemorrhage or mass effect. The hawley-white junction is well differentiated. Cerebellum: Unremarkable. Mass effect: No evidence of midline shift. Intracranial vasculature: unremarkable Soft tissues: Normal. Calvarium/osseous structures: No depressed skull fracture. Paranasal sinuses and mastoid air cells: Mild scattered paranasal sinus disease. Visualized orbits: Orbital contents are intact. IMPRESSION: No acute intracranial process.
--- NOTE | 2021-12-07 20:05 | XR ---
EXAMINATION TYPE: XR chest 1V DATE OF EXAM: 12/07/2021 7:59 PM COMPARISON: Chest radiographs from 09/26/2019. TECHNIQUE: XR chest 1V Portable AP radiograph of the chest. CLINICAL INDICATION:Female, 21 years old with history of chest pain; FINDINGS: Lungs/Pleura: There is no evidence of pleural effusion, focal consolidation, or pneumothorax. Pulmonary vascularity: Unremarkable. Heart/mediastinum: Cardiomediastinal silhouette is unremarkable. Musculoskeletal: No acute osseous pathology. IMPRESSION: No acute cardiopulmonary disease/process.
--- NOTE | 2021-12-07 20:52 | ED ---
Chest Pain HPI - General Chief Complaint: Chest Pain Stated Complaint: chest tightness, SOB Time Seen by Provider: 12/07/21 18:03 Source: patient Mode of arrival: ambulatory Limitations: no limitations - History of Present Illness Initial Comments: Patient complains of chest pain. She also complains of a head injury that occurred yesterday. Nothing makes her chest pain better or worse. She has taken no medicines. He wasn't doing anything when it began. She has no weakness. She has no paresthesias. He has no weakness. - Related Data Previous Rx's Medication Instructions Recorded Acetaminophen Tab [Tylenol] 650 mg PO Q4HR PRN tab 12/01/20 QUEtiapine [SEROquel] 200 mg PO HS 14 Days tab 12/01/20 lamoTRIgine [LaMICtal] 50 mg PO DAILY 14 Days tab 12/01/20 Allergies Allergy/AdvReac Type Severity Reaction Status Date / Time dextromethorphan HBr Allergy Rash/Hives Verified 12/07/21 17:59 [From Delsym Cough & Cold] doxylamine Allergy Rash/Hives Verified 12/07/21 17:59 [From Delsym Cough & Cold] honey Allergy Rash/Hives Verified 12/07/21 17:59 Review of Systems ROS Statement: Those systems with pertinent positive or pertinent negative responses have been documented in the HPI. ROS Other: All systems not noted in ROS Statement are negative. EKG Findings - EKG Comments: EKG Findings:: Twelve-lead EKG shows ventricular rate 89 bpm, normal NE interval and QRS complexes, no ST elevation or depression, interpreted by me as normal sinus rhythm. Past Medical History Past Medical History: GERD/Reflux Additional Past Medical History / Comment(s): Current stomach ulcer. History of Any Multi-Drug Resistant Organisms: None Reported Past Surgical History: No Surgical Hx Reported Additional Past Surgical History / Comment(s): Liposuction. Past Anesthesia/Blood Transfusion Reactions: No Reported Reaction Past Psychological History: Anxiety, Bipolar Smoking Status: Never smoker Past Alcohol Use History: Occasional Past Drug Use History: Marijuana - Past Family History Mother Family Medical History: No Reported History Additional Family Medical History / Comment(s): "Has Ovarian Cancer Gene." General Exam Limitations: no limitations General appearance: alert, in no apparent distress Head exam: Present: atraumatic, normocephalic, normal inspection Eye exam: Present: normal appearance, PERRL, EOMI. Absent: scleral icterus, conjunctival injection, periorbital swelling ENT exam: Present: normal exam, mucous membranes moist Neck exam: Present: normal inspection. Absent: tenderness, meningismus, lymphadenopathy Respiratory exam: Present: normal lung sounds bilaterally. Absent: respiratory distress, wheezes, rales, rhonchi, stridor Cardiovascular Exam: Present: regular rate, normal rhythm, normal heart sounds. Absent: systolic murmur, diastolic murmur, rubs, gallop, clicks GI/Abdominal exam: Present: soft, normal bowel sounds. Absent: distended, tenderness, guarding, rebound, rigid Extremities exam: Present: normal inspection, full ROM, normal capillary refill. Absent: tenderness, pedal edema, joint swelling, calf tenderness Back exam: Present: normal inspection Neurological exam: Present: alert, oriented X3, CN II-XII intact Psychiatric exam: Present: normal affect, normal mood Skin exam: Present: warm, dry, intact, normal color. Absent: rash Course Vital Signs 12/07/21 12/07/21 12/07/21 17:56 18:04 19:30 Temperature 98.2 F Pulse Rate 86 68 Pulse Rate [ 78 Lock Fitter ] Respiratory 18 18 Rate Blood Pressure 123/80 114/71 O2 Sat by Pulse 99 100 Oximetry Chest Pain MDM - Core Measures AMI Core Measures Followed: Yes - MDM Patient complains of chest pain. Workup is unremarkable. Her imaging is normal. EKG is normal. There is no evidence of any acute emergency. She is stable for discharge. Disposition Clinical Impression: Chest pain Disposition: HOME SELF-CARE Condition: Good Instructions (If sedation given, give patient instructions): Chest Pain (ED) Is patient prescribed a controlled substance at d/c from ED?: No Referrals: Sharmaine Santiago MD [Primary Care Provider] - 1-2 days
[2021-12-07 21:07] VITALS: BP 121/87; PULSE 92
== END 2021-12-07 21:07 | disposition home or self-care (01) ==
LOC: EC 17:46
DX: R07.9 Chest pain, unspecified (principal); K21.9 Gastro-esophageal reflux disease without esophagitis; F41.9 Anxiety disorder, unspecified; F31.9 Bipolar disorder, unspecified; F12.90 Cannabis use, unspecified, uncomplicated; Z88.8 Allergy status to other drugs, medicaments and biological substances; Z88.1 Allergy status to other antibiotic agents; Z91.030 Bee allergy status; Z79.899 Other long term (current) drug therapy
CPT/HCPCS: 36415; 70450; 71045; 80053; 83735; 83880; 84484; 85025; 85379; 85610; 85730; 93005; 96360; 96361; 99285

== ENCOUNTER 2023-01-29 19:46 | Emergency (ER) | payer MEDICAID ==
[2023-01-29 20:23] VITALS: RESP 18; TEMP 98.6
--- NOTE | 2023-01-29 21:26 | ED ---
General Adult HPI - General Chief complaint: Extremity Injury, Upper Stated complaint: Left Wrist Injury Time Seen by Provider: 01/29/23 20:51 Source: patient, RN notes reviewed, old records reviewed Mode of arrival: ambulatory Limitations: no limitations - History of Present Illness Initial comments: 22-year-old female with left wrist injury. Patient had fallen injuring her left wrist. She had noted bruising this occurred just prior to arrival. No head or neck trauma. No other injury. - Related Data Previous Rx's Medication Instructions Recorded Acetaminophen Tab [Tylenol] 650 mg PO Q4HR PRN tab 12/01/20 QUEtiapine [SEROquel] 200 mg PO HS 14 Days tab 12/01/20 lamoTRIgine [LaMICtal] 50 mg PO DAILY 14 Days tab 12/01/20 Allergies Allergy/AdvReac Type Severity Reaction Status Date / Time dextromethorphan HBr Allergy Rash/Hives Verified 01/29/23 20:16 [From Delsym Cough & Cold] doxylamine Allergy Rash/Hives Verified 01/29/23 20:16 [From Delsym Cough & Cold] honey Allergy Rash/Hives Verified 01/29/23 20:16 Review of Systems ROS Statement: Those systems with pertinent positive or pertinent negative responses have been documented in the HPI. ROS Other: All systems not noted in ROS Statement are negative. Past Medical History Past Medical History: GERD/Reflux Additional Past Medical History / Comment(s): stomach ulcer. History of Any Multi-Drug Resistant Organisms: None Reported Past Surgical History: No Surgical Hx Reported Additional Past Surgical History / Comment(s): Liposuction. Past Anesthesia/Blood Transfusion Reactions: No Reported Reaction Past Psychological History: Anxiety, Bipolar Smoking Status: Never smoker Past Alcohol Use History: Occasional Past Drug Use History: Marijuana - Past Family History Mother Family Medical History: No Reported History Additional Family Medical History / Comment(s): "Has Ovarian Cancer Gene." General Exam Limitations: no limitations General appearance: alert, in no apparent distress Head exam: Present: atraumatic, normocephalic Eye exam: Present: normal appearance, PERRL ENT exam: Present: normal exam Neck exam: Present: normal inspection. Absent: tenderness, meningismus Respiratory exam: Present: normal lung sounds bilaterally. Absent: respiratory distress, wheezes Cardiovascular Exam: Present: regular rate, normal rhythm Extremities exam: Present: other (Ecchymosis and swelling to the distal left forearm just proximal to the wrist distal pulses intact) Neurological exam: Present: alert, oriented X3, CN II-XII intact. Absent: motor sensory deficit Psychiatric exam: Present: normal affect, normal mood Skin exam: Present: warm Course Vital Signs 01/29/23 20:16 Temperature 98.6 F Pulse Rate 80 Respiratory 18 Rate Blood Pressure 117/68 O2 Sat by Pulse 98 Oximetry Medical Decision Making - Medical Decision Making Was pt. sent in by a medical professional or institution (, PA, SUPERCHARGER MECHANIC, urgent care, hospital, or care home...) When possible be specific @ -No Did you speak to anyone other than the patient for history (EMS, parent, family, police, friend...)? What history was obtained from this source @ -No Did you review nursing and triage notes (agree or disagree)? Why? @ -I reviewed and agree with nursing and triage notes Were old charts reviewed (outside hosp., previous admission, EMS record, old EKG, old radiological studies, urgent care reports/EKG's, care home records)? Report findings @ -No old charts were reviewed Differential Diagnosis (chest pain, altered mental status, abdominal pain women, abdominal pain men, vaginal bleeding, weakness, fever, dyspnea, syncope, headache, dizziness, GI bleed, back pain, seizure, CVA, palpatations, mental health, musculoskeletal)? @ -Differential Musculoskeletal Muscular strain, contusion, ligament sprain, fracture, arthritis, septic arth ritis, bursitis, cellulitis, muscle spasm, nerve compression, DVT, arterial occlusion, herpes zoster, electrolyte abnormality, tumor.... This is not meant to be in all inclusive list EKG interpreted by me (3pts min.). @ -As above X-rays interpreted by me (1pt min.). @ X-ray of the left wrist, negative for displaced fracture CT interpreted by me (1pt min.). @ -None done U/S interpreted by me (1pt. min.). @ -None done What testing was considered but not performed or refused? (CT, X-rays, U/S, labs)? Why? @ -None What meds were considered but not given or refused? Why? @ -None Did you discuss the management of the patient with other professionals (professionals i.e. , PA, SUPERCHARGER MECHANIC, lab, RT, psych nurse, home health care social worker, emt i/99, teacher, chief green officer, family service caseworker)? Give summary @ -No Was smoking cessation discussed for >3mins.? @ -No Was critical care preformed (if so, how long)? @ -No Were there social determinants of health that impacted care today? How? (Homelessness, low income, unemployed, alcoholism, drug addiction, transport ation, low edu. Level, literacy, decrease access to med. care, senior living, rehab)? @ -No Was there de-escalation of care discussed even if they declined (Discuss DNR or withdrawal of care, Hospice)? DNR status @ -No What co-morbidities impacted this encounter? (DM, HTN, Smoking, COPD, CAD, Cancer, CVA, ARF, Chemo, Hep., AIDS, mental health diagnosis, sleep apnea, morbid obesity)? @ -None Was patient admitted / discharged? Hospital course, mention meds given and route, prescriptions, significant lab abnormalities, going to OR and other pertinent info. @ -[22-year-old female with wrist contusion, no fracture on x-ray. Undiagnosed new problem with uncertain prognosis? @ -No Drug Therapy requiring intensive monitoring for toxicity (Heparin, Nitro, Insulin, Cardizem)? @ -No Were any procedures done? @ -No Diagnosis/symptom? @ -Left wrist contusion and hematoma Acute, or Chronic, or Acute on Chronic? @ -Acute Uncomplicated (without systemic symptoms) or Complicated (systemic symptoms)? @ -default Side effects of treatment? @ -No Exacerbation, Progression, or Severe Exacerbation? @ -No Poses a threat to life or bodily function? How? (Chest pain, [place], [place], pneumonia, PE, COPD, DKA, ARF, appy, cholecystitis, CVA, Diverticulitis, Homicidal, Suicidal, threat to staff... and all critical care pts) @ -No Disposition Clinical Impression: Contusion of wrist, left Disposition: HOME SELF-CARE Condition: Good Instructions (If sedation given, give patient instructions): Contusion in Adults (ED), Wrist Injury (ED) Is patient prescribed a controlled substance at d/c from ED?: No Referrals: Sharmaine Santiago MD [Primary Care Provider] - 1-2 days Time of Disposition: 21:26
--- NOTE | 2023-01-29 21:34 | XR ---
EXAMINATION TYPE: XR wrist complete LT DATE OF EXAM: 01/29/2023 8:33 PM CLINICAL INDICATION:Female, 22 years old with history of fall, pain and swelling; [facility] COMPARISON: None. TECHNIQUE: 4 views of the left wrist. FINDINGS: Osseous mineralization appears appropriate. No destructive bony lesion. No acute fracture or dislocat ion. Joint spaces are maintained. Unremarkable soft tissues. No radiopaque foreign body is seen. IMPRESSION: No evidence of fracture or dislocation.
[2023-01-29 22:08] VITALS: BP 113/77; PULSE 79
== END 2023-01-29 21:56 | disposition home or self-care (01) ==
LOC: EC 19:46
DX: S60.212A Contusion of left wrist, initial encounter (principal); F12.90 Cannabis use, unspecified, uncomplicated; Z91.018 Allergy to other foods; Z88.8 Allergy status to other drugs, medicaments and biological substances; Z86.59 Personal history of other mental and behavioral disorders; W18.30XA Fall on same level, unspecified, initial encounter
CPT/HCPCS: 99283

== ENCOUNTER 2023-07-15 16:10 | Emergency (ER) | payer MEDICAID, OTHER ==
[2023-07-15 17:13] LABS: Basophils % (A) 0 %; Eosinophils # (A) 0.1 k/uL (0-0.7); Eosinophils % (A) 1 %; HCT 37.4 % (34.0-46.0); HGB 12.7 gm/dL (11.4-16.0); Lymphocytes # (A) 1.8 k/uL (1.0-4.8); Lymphocytes % (A) 20 %; MCH 29.8 pg (25.0-35.0); MCHC 33.9 g/dL (31.0-37.0); MCV 87.7 fL (80.0-100.0); Mean Platelet Volume 8.3; Monocytes # (A) 0.4 k/uL (0-1.0); Monocytes % (A) 5 %; Neutrophils # (A) 6.5 k/uL (1.3-7.7); Neutrophils % (A) 72 %; Platelet Count 207 k/uL (150-450); RBC 4.27 m/uL (3.80-5.40); RDW 13.4 % (11.5-15.5)
--- NOTE | 2023-07-15 17:20 | ED ---
General Adult HPI - General Chief complaint: Syncope Stated complaint: Syncope Time Seen by Provider: 07/15/23 16:30 Source: patient, EMS, RN notes reviewed Mode of arrival: EMS Limitations: no limitations - History of Present Illness Initial comments: 22-year-old female presents to the emergency department for evaluation of syncope. Patient states that today while at work she had a syncopal episode. She is unsure how long this lasted. She notes that she had many coworkers around who caught her. She does not believe that she hit her head. She states that yesterday she had taken around 6 laxative pills. She is not sure what she took. She notes that today she had multiple bowel movements and had a lot of abdominal cramping. She states that she had severe cramping prior to passing out. She states that she received nausea medication on the ambulance along with fluids and is feeling much better. - Related Data Previous Rx's Medication Instructions Recorded Acetaminophen Tab [Tylenol] 650 mg PO Q4HR PRN tab 12/01/20 QUEtiapine [SEROquel] 200 mg PO HS 14 Days tab 12/01/20 lamoTRIgine [LaMICtal] 50 mg PO DAILY 14 Days tab 12/01/20 Allergies Allergy/AdvReac Type Severity Reaction Status Date / Time dextromethorphan HBr Allergy Rash/Hives Verified 07/15/23 17:37 [From Delsym Cough & Cold] doxylamine Allergy Rash/Hives Verified 07/15/23 17:37 [From Delsym Cough & Cold] honey Allergy Rash/Hives Verified 07/15/23 17:37 Review of Systems ROS Statement: Those systems with pertinent positive or pertinent negative responses have been documented in the HPI. ROS Other: All systems not noted in ROS Statement are negative. Past Medical History Past Medical History: GERD/Reflux Additional Past Medical History / Comment(s): stomach ulcer. History of Any Multi-Drug Resistant Organisms: None Reported Past Surgical History: No Surgical Hx Reported Additional Past Surgical History / Comment(s): Liposuction. Past Anesthesia/Blood Transfusion Reactions: No Reported Reaction Past Psychological History: Anxiety, Bipolar Smoking Status: Never smoker Past Alcohol Use History: Occasional Past Drug Use History: Marijuana - Past Family History Mother Family Medical History: No Reported History Additional Family Medical History / Comment(s): "Has Ovarian Cancer Gene." General Exam Limitations: no limitations General appearance: alert, in no apparent distress Head exam: Present: atraumatic, normocephalic, normal inspection Eye exam: Present: normal appearance, PERRL, EOMI. Absent: scleral icterus, conjunctival injection, periorbital swelling ENT exam: Present: normal exam, mucous membranes moist Neck exam: Present: normal inspection. Absent: tenderness, meningismus, lymphadenopathy Respiratory exam: Present: normal lung sounds bilaterally. Absent: respiratory distress, wheezes, rales, rhonchi, stridor Cardiovascular Exam: Present: regular rate, normal rhythm, normal heart sounds. Absent: systolic murmur, diastolic murmur, rubs, gallop, clicks GI/Abdominal exam: Present: soft, hyperactive bowel sounds. Absent: distended, tenderness, guarding, rebound, rigid Extremities exam: Present: normal inspection, full ROM, normal capillary refill. Absent: tenderness, pedal edema, joint swelling, calf tenderness Neurological exam: Present: alert, oriented X3, CN II-XII intact Psychiatric exam: Present: normal affect, normal mood Skin exam: Present: warm, dry, intact, normal color. Absent: rash Course Vital Signs 07/15/23 07/15/23 17:27 18:46 Temperature 97.9 F Pulse Rate 75 64 Respiratory 16 16 Rate Blood Pressure 106/80 104/68 O2 Sat by Pulse 99 98 Oximetry Medical Decision Making - Medical Decision Making Was pt. sent in by a medical professional or institution (KATRIN Gilliam, PLY CUTTER, urgent care, hospital, or snf...) When possible be specific @ -No Did you speak to anyone other than the patient for history (EMS, parent, family, police, friend...)? What history was obtained from this source @ -No Did you review nursing and triage notes (agree or disagree)? Why? @ -I reviewed and agree with nursing and triage notes Were old charts reviewed (outside hosp., previous admission, EMS record, old EKG, old radiological studies, urgent care reports/EKG's, snf records)? Report findings @ -No old charts were reviewed Differential Diagnosis (chest pain, altered mental status, abdominal pain women, abdominal pain men, vaginal bleeding, weakness, fever, dyspnea, syncope, headache, dizziness, GI bleed, back pain, seizure, CVA, palpatations, mental health, musculoskeletal)? @ -n differential Syncope: Valvular disease, hypertrophic cardiomyopathy, pulmonary embolism, tamponade, tachycardia, bradycardia, [place], hypovolemia, hemorrhage, dissection, anemia, intracranial hemorrhage, seizure, hypoglycemia, carbon monoxide poisoning, this is not meant to be an all-inclusive list. EKG interpreted by me (3pts min.). @ -EKG at 1821 shows sinus bradycardia rate 56, UT 165, QRS 84, QTQTc 4 24659 X-rays interpreted by me (1pt min.). @ -Chest x-ray shows no acute infiltrate CT interpreted by me (1pt min.). @ -None done U/S interpreted by me (1pt. min.). @ -None done What testing was considered but not performed or refused? (CT, X-rays, U/S, labs)? Why? @ -None What meds were considered but not given or refused? Why? @ -None Did you discuss the management of the patient with other professionals (professionals i.e. , PA, PLY CUTTER, lab, RT, psych nurse, social service manager, lens cementer, teacher, special skills officer, case liner)? Give summary @ -No Was smoking cessation discussed for >3mins.? @ -No Was critical care preformed (if so, how long)? @ -No Were there social determinants of health that impacted care today? How? (Homelessness, low income, unemployed, alcoholism, drug addiction, transportation, low edu. Level, literacy, decrease access to med. care, snf, rehab)? @ -No Was there de-escalation of care discussed even if they declined (Discuss DNR or withdrawal of care, Hospice)? DNR status @ -No What co-morbidities impacted this encounter? (DM, HTN, Smoking, COPD, CAD, Cancer, CVA, ARF, Chemo, Hep., AIDS, mental health diagnosis, sleep apnea, morbid obesity)? @ -None Was patient admitted / discharged? Hospital course, mention meds given and route, prescriptions, significant lab abnormalities, going to OR and other pertinent info. @ -Discharge. Patient presented to the emergency department for evaluation of syncope. Patient states that she has not been eating well and took laxatives last night. She has had multiple bowel movements today. Patient had a syncopal episode while at work. She denies falling to the ground or hitting her head as she was caught by her coworkers. She is unsure how long she was out for. She was given Zofran and fluids on the ambulance which significantly improved her symptoms. Patient given a liter of fluids in the ED. Laboratory studies obtained. CBC unremarkable. CMP significant for mild hypokalemia, replaced p.o. Patient feeling better and wanted to be discharged. Discussed tricked return precautions with patient. She is understanding agreeable plan. Patient stable at time of discharge. Case discussed with Dr. Gomez. Undiagnosed new problem with uncertain prognosis? @ -No Drug Therapy requiring intensive monitoring for toxicity (Heparin, Nitro, Insulin, Cardizem)? @ -No Were any procedures done? @ -No Diagnosis/symptom? @ -Syncope, dehydration Acute, or Chronic, or Acute on Chronic? @ -Acute Uncomplicated (without systemic symptoms) or Complicated (systemic symptoms)? @ -Uncomplicated Side effects of treatment? @ -No Exacerbation, Progression, or Severe Exacerbation? @ -No Poses a threat to life or bodily function? How? (Chest pain, [place], [place], pneumonia, PE, COPD, DKA, ARF, appy, cholecystitis, CVA, Diverticulitis, Homicidal, Suicidal, threat to staff... and all critical care pts) @ -No - Lab Data Result diagrams: 07/15/23 17:00 07/15/23 17:00 Lab Results 07/15/23 07/15/23 07/15/23 Range/Units 17:00 17:00 17:00 WBC 9.0 (3.8-10.6) k/uL RBC 4.27 (3.80-5.40) m/uL Hgb 12.7 (11.4-16.0) gm/dL Hct 37.4 (34.0-46.0) % MCV 87.7 (80.0-100.0) fL MCH 29.8 (25.0-35.0) pg MCHC 33.9 (31.0-37.0) g/dL RDW 13.4 (11.5-15.5) % Plt Count 207 (150-450) k/uL MPV 8.3 Neutrophils % 72 % Lymphocytes % 20 % Monocytes % 5 % Eosinophils % 1 % Basophils % 0 % Neutrophils # 6.5 (1.3-7.7) k/uL Lymphocytes # 1.8 (1.0-4.8) k/uL Monocytes # 0.4 (0-1.0) k/uL Eosinophils # 0.1 (0-0.7) k/uL Basophils # 0.0 (0-0.2) k/uL PT 11.5 (10.0-12.5) sec INR 1.1 (<1.2) APTT 24.2 (22.0-30.0) sec Sodium 141 (137-145) mmol/L Potassium 3.1 L (3.5-5.1) mmol/L Chloride 113 H (98-107) mmol/L Carbon Dioxide 20 L (22-30) mmol/L Anion Gap 8 mmol/L BUN 13 (7-17) mg/dL Creatinine 0.57 (0.52-1.04) mg/dL Est GFR (CKD-EPI)AfAm >90 (>60 ml/min/1.73 sqM) Est GFR (CKD-EPI)NonAf >90 (>60 ml/min/1.73 sqM) Glucose 88 (74-99) mg/dL Calcium 9.1 (8.4-10.2) mg/dL Total Bilirubin 0.7 (0.2-1.3) mg/dL AST 19 (14-36) U/L ALT 13 (4-34) U/L Alkaline Phosphatase 50 (38-126) U/L Total Protein 6.6 (6.3-8.2) g/dL Albumin 4.0 (3.5-5.0) g/dL Lipase 98 (23-300) U/L Disposition Clinical Impression: Syncope, Dehydration, Nausea & vomiting Disposition: HOME SELF-CARE Condition: Stable Instructions (If sedation given, give patient instructions): Dizziness (ED) Additional Instructions: Please increase your fluid intake. Follow up with your primary care provider. Return to the emergency department for new or worsening symptoms. Is patient prescribed a controlled substance at d/c from ED?: No Referrals: Sharmaine Santiago MD [Primary Care Provider] - 1-2 days
[2023-07-15 17:24] LABS: ALT 13 U/L (4-34); AST 19 U/L (14-36); African American GFR (CKD) >90 (>60 ml/min/1.73 sqM); Alkaline Phosphatase 50 U/L (38-126); Anion Gap 8 mmol/L; Blood Urea Nitrogen 13 mg/dL (7-17); Calcium 9.1 mg/dL (8.4-10.2); Carbon Dioxide 20 mmol/L (22-30); Chloride 113 mmol/L (98-107); Glucose 88 mg/dL (74-99); Lipase 98 U/L (23-300); Non-African American GFR(CKD) >90 (>60 ml/min/1.73 sqM); Potassium 3.1 mmol/L (3.5-5.1); Sodium 141 mmol/L (137-145); Total Bilirubin 0.7 mg/dL (0.2-1.3); Total Protein 6.6 g/dL (6.3-8.2)
[2023-07-15 17:27] LABS: INR 1.1 (<1.2); Partial Thromboplastin Time 24.2 sec (22.0-30.0); Prothrombin Time 11.5 sec (10.0-12.5)
[2023-07-15] MEDS: SODIUM CHLORIDE 0.9% 1,000 ML IV STA (17:36)
--- NOTE | 2023-07-15 17:39 | XR ---
EXAMINATION TYPE: XR chest 2V DATE OF EXAM: 07/15/2023 COMPARISON: 12/07/2021 HISTORY: 22-year-old female with syncope TECHNIQUE: PA and lateral views FINDINGS: The cardiomediastinal silhouette, aorta, and pulmonary vasculature are within normal limits. Lungs an d pleural spaces are clear. IMPRESSION: No acute cardiopulmonary process.
[2023-07-15 17:53] VITALS: RESP 16; TEMP 97.9
[2023-07-15] MEDS: POTASSIUM CHLORIDE ER 20 MEQ TAB.ER PO STA (18:14)
[2023-07-15] MEDS: KETOROLAC 15 MG/ML 1 ML VIAL IVP STA (18:27)
[2023-07-15 19:10] VITALS: BP 104/68; PULSE 64
== END 2023-07-15 18:48 | disposition home or self-care (01) ==
LOC: EC 16:10
DX: R55 Syncope and collapse (principal); E86.0 Dehydration; R11.2 Nausea with vomiting, unspecified; Z91.018 Allergy to other foods; Z88.1 Allergy status to other antibiotic agents; Z88.8 Allergy status to other drugs, medicaments and biological substances
CPT/HCPCS: 36415; 71046; 80053; 83690; 85025; 85610; 85730; 93005; 96360; 99284

== ENCOUNTER 2024-05-14 06:56 | Emergency (ER) | payer MEDICAID, OTHER ==
--- NOTE | 2024-05-14 07:34 | ED ---
Nausea/Vomiting/Diarrhea HPI - General Chief complaint: Nausea/Vomiting/Diarrhea Stated complaint: Vomiting Time Seen by Provider: 05/14/24 07:24 Source: patient, RN notes reviewed Mode of arrival: ambulatory Limitations: no limitations - History of Present Illness Initial comments: This is a 23-year-old female who presents to the emergency department for nausea and vomiting. States that it started yesterday evening and has been essentially constant since. States that her stomach is sore and feels like it is a burning. Denies any changes in bowel or bladder habits. She does work at [employer] and reports possible sick contacts. Reports diffuse bodyaches as well. She tried taking a Zofran shortly before arrival and has not thrown up since, but states that she still feels very nauseous and uncomfortable. MD complaint: nausea, vomiting, abdominal pain - Related Data Previous Rx's Medication Instructions Recorded Acetaminophen Tab [Tylenol] 650 mg PO Q4HR PRN tab 12/01/20 QUEtiapine [SEROquel] 200 mg PO HS 14 Days tab 12/01/20 lamoTRIgine [LaMICtal] 50 mg PO DAILY 14 Days tab 12/01/20 Metoclopramide [Reglan] 5 - 10 mg PO Q6H PRN #30 tab 05/14/24 Allergies Allergy/AdvReac Type Severity Reaction Status Date / Time dextromethorphan HBr Allergy Rash/Hives Verified 05/14/24 07:23 [From Delsym Cough & Cold] doxylamine Allergy Rash/Hives Verified 05/14/24 07:23 [From Delsym Cough & Cold] honey Allergy Rash/Hives Verified 05/14/24 07:23 Review of Systems ROS Statement: Those systems with pertinent positive or pertinent negative responses have been documented in the HPI. ROS Other: All systems not noted in ROS Statement are negative. Past Medical History Past Medical History: GERD/Reflux Additional Past Medical History / Comment(s): stomach ulcer. History of Any Multi-Drug Resistant Organisms: None Reported Past Surgical History: No Surgical Hx Reported Additional Past Surgical History / Comment(s): Liposuction. Past Anesthesia/Blood Transfusion Reactions: No Reported Reaction Past Psychological History: Anxiety, Bipolar Smoking Status: Never smoker Past Alcohol Use History: Occasional Past Drug Use History: Marijuana - Past Family History Mother Family Medical History: No Reported History Additional Family Medical History / Comment(s): "Has Ovarian Cancer Gene." General Exam Limitations: no limitations General appearance: alert, in no apparent distress Head exam: Present: atraumatic, normocephalic, normal inspection Respiratory exam: Present: normal lung sounds bilaterally. Absent: respiratory distress, wheezes, rales, rhonchi, stridor Cardiovascular Exam: Present: regular rate, normal rhythm GI/Abdominal exam: Present: soft, normal bowel sounds. Absent: distended, tenderness, guarding, rebound, rigid Neurological exam: Present: alert, oriented X3, CN II-XII intact Psychiatric exam: Present: normal affect, normal mood Skin exam: Present: warm, dry, intact, normal color. Absent: rash Course Vital Signs 05/14/24 05/14/24 07:21 08:43 Temperature 99.1 F 98.5 F Pulse Rate 117 H 92 Respiratory 20 16 Rate Blood Pressure 107/76 111/70 O2 Sat by Pulse 99 97 Oximetry Medical Decision Making - Medical Decision Making This is a 23 year old female who presents to the emergency department for nausea and vomiting. Was pt. sent in by a medical professional or institution? @ -No Did you speak to anyone other than the patient for history? @ -No Did you review nursing and triage notes? @ -Yes, and I agree, it is accurate with regards to the patient's symptoms. Were old charts reviewed? @ -No Differential Diagnosis? @ -Differential Nausea and Vomiting: Gastroenteritis, cholecystitis, appendicitis, pancreatitis, migraine, benign positional vertigo, food borne illness, pyelonephritis, irritable bowel syndrome, influenza, Covid, GERD, incarcerated hernia, intestinal obstruction, this is not meant to be an all-inclusive list. EKG interpreted by me (3pts min.)? @ -Not obtained X-rays interpreted by me (1pt min.)? @ -Not obtained CT interpreted by me (1pt min.)? @ -Not obtained U/S interpreted by me (1pt. min.)? @ -Not obtained What testing was considered but not performed? (CT, X-rays, U/S, labs)? Why? @ -None What meds were considered but not given? Why? @ -None Did you discuss the management of the patient with other professionals? @ -No Did you reconcile home meds? @ -No Was smoking cessation discussed for >3mins.? @ -No Was critical care preformed (if so, how long)? @ -No Were there social determinants of health that impacted care today? How? (Homelessness, low income, unemployed, alcoholism, drug addiction, transportation, low edu. Level, literacy, decrease access to med. care, detention, rehab)? @ -No Was there de-escalation of care discussed even if they declined? (Discuss DNR or withdrawal of care, Hospice)? @ -No What co-morbidities impacted this encounter? (DM, HTN, Smoking, COPD, CAD, Cancer, CVA, Hep., AIDS, mental health diagnosis, sleep apnea, morbid obesity)? @ -GERD Was patient admitted / discharged? @ -Discharged. Lab work unremarkable. COVID, influenza, and RSV testing negative. Given that she had taken Zofran before arrival, she was given a dose of Reglan along with IV fluids, famotidine, and pantoprazole. Tylenol administered for the low-grade fever. She had significant relief in symptoms and was tolerating oral intake. Symptoms likely viral in nature. Prescription for Reglan provided with dosing instructions reviewed. Advised she slowly advance her diet as tolerated and remain well-hydrated. Patient discharged home in stable condition. Case discussed with ED attending Dr. Gonzalez. Return precautions reviewed in depth, the patient is instructed to return to the emergency department with any new, worsening, or concerning symptoms. Patient verbalized understanding. Undiagnosed new problem with uncertain prognosis? @ -None Drug Therapy requiring intensive monitoring for toxicity (Heparin, Nitro, Ins ulin, Cardizem)? @ -None Were any procedures done? @ -None Diagnosis/symptom? @ -Nausea and vomiting Acute, or Chronic, or Acute on Chronic? @ -Acute Uncomplicated (without systemic symptoms) or Complicated (systemic symptoms)? @ -Uncomplicated Side effects of treatment? @ -None Exacerbation, Progression, or Severe Exacerbation] @ -Not applicable Poses a threat to life or bodily function? @ -No - Lab Data Result diagrams: 05/14/24 07:44 05/14/24 07:44 Lab Results 05/14/24 05/14/24 05/14/24 Range/Units 07:44 07:44 07:44 WBC 7.3 (3.8-10.6) k/uL RBC 5.03 (3.80-5.40) m/uL Hgb 14.0 (11.4-16.0) gm/dL Hct 43.3 (34.0-46.0) % MCV 86.1 (80.0-100.0) fL MCH 27.9 (25.0-35.0) pg MCHC 32.4 (31.0-37.0) g/dL RDW 13.6 (11.5-15.5) % Plt Count 233 (150-450) k/uL MPV 7.6 Neutrophils % 89 % Lymphocytes % 6 % Monocytes % 2 % Eosinophils % 2 % Basophils % 0 % Neutrophils # 6.5 (1.3-7.7) k/uL Lymphocytes # 0.4 L (1.0-4.8) k/uL Monocytes # 0.2 (0-1.0) k/uL Eosinophils # 0.1 (0-0.7) k/uL Basophils # 0.0 (0-0.2) k/uL Sodium 138 (137-145) mmol/L Potassium 3.9 (3.5-5.1) mmol/L Chloride 104 (98-107) mmol/L Carbon Dioxide 21 L (22-30) mmol/L Anion Gap 13 mmol/L BUN 13 (7-17) mg/dL Creatinine 0.50 L (0.52-1.04) mg/dL Est GFR (CKD-EPI)AfAm >90 (>60 ml/min/1.73 sqM) Est GFR (CKD-EPI)NonAf >90 (>60 ml/min/1.73 sqM) Glucose 107 H (74-99) mg/dL Plasma Lactic Acid Jordan 1.4 (0.7-2.0) mmol/L Calcium 9.5 (8.4-10.2) mg/dL Total Bilirubin 1.3 (0.2-1.3) mg/dL AST 17 (14-36) U/L ALT 14 (4-34) U/L Alkaline Phosphatase 37 L (38-126) U/L Total Protein 7.6 (6.3-8.2) g/dL Albumin 4.8 (3.5-5.0) g/dL Amylase 67 (30-110) U/L Lipase 82 (23-300) U/L HCG, Qual Not Detected Influenza Type A (PCR) (Not Detectd) Influenza Type B (PCR) (Not Detectd) RSV (PCR) (Not Detectd) SARS-CoV-2 (PCR) (Not Detectd) 05/14/24 Range/Units 07:44 WBC (3.8-10.6) k/uL RBC (3.80-5.40) m/uL Hgb (11.4-16.0) gm/dL Hct (34.0-46.0) % MCV (80.0-100.0) fL MCH (25.0-35.0) pg MCHC (31.0-37.0) g/dL RDW (11.5-15.5) % Plt Count (150-450) k/uL MPV Neutrophils % % Lymphocytes % % Monocytes % % Eosinophils % % Basophils % % Neutrophils # (1.3-7.7) k/uL Lymphocytes # (1.0-4.8) k/uL Monocytes # (0-1.0) k/uL Eosinophils # (0-0.7) k/uL Basophils # (0-0.2) k/uL Sodium (137-145) mmol/L Potassium (3.5-5.1) mmol/L Chloride (98-107) mmol/L Carbon Dioxide (22-30) mmol/L Anion Gap mmol/L BUN (7-17) mg/dL Creatinine (0.52-1.04) mg/dL Est GFR (CKD-EPI)AfAm (>60 ml/min/1.73 sqM) Est GFR (CKD-EPI)NonAf (>60 ml/min/1.73 sqM) Glucose (74-99) mg/dL Plasma Lactic Acid Jordan (0.7-2.0) mmol/L Calcium (8.4-10.2) mg/dL Total Bilirubin (0.2-1.3) mg/dL AST (14-36) U/L ALT (4-34) U/L Alkaline Phosphatase (38-126) U/L Total Protein (6.3-8.2) g/dL Albumin (3.5-5.0) g/dL Amylase (30-110) U/L Lipase (23-300) U/L HCG, Qual Influenza Type A (PCR) Not Detected (Not Detectd) Influenza Type B (PCR) Not Detected (Not Detectd) RSV (PCR) Not Detected (Not Detectd) SARS-CoV-2 (PCR) Not Detected (Not Detectd) Disposition Clinical Impression: Nausea and vomiting Disposition: HOME SELF-CARE Instructions (If sedation given, give patient instructions): Acute Nausea and Vomiting (ED) Additional Instructions: Return to the emergency department with any new, worsening, or concerning symptoms. Take the Reglan every 6 hours as needed for nausea and vomiting. You can take 1 to 2 tablets at a time. You can also take this with Zofran up to every 8 hours as needed. Slowly advance your diet as tolerated and remain well- hydrated. Follow up with your primary care provider in 1-2 days. Prescriptions: Metoclopramide [Reglan] 5 - 10 mg PO Q6H PRN #30 tab PRN Reason: Nausea And Vomiting Is patient prescribed a controlled substance at d/c from ED?: No Referrals: Sharmaine Santiago MD [Primary Care Provider] - 1-2 days Time of Disposition: 08:51
[2024-05-14] MEDS: FAMOTIDINE 20 MG/2 ML VIAL IV STA (07:50)
[2024-05-14] MEDS: SODIUM CHLORIDE 0.9% 1,000 ML IV STA (07:50)
[2024-05-14] MEDS: METOCLOPRAMIDE 5 MG/ML 2 ML VIAL IVP STA (07:52)
[2024-05-14 07:53] LABS: Basophils % (A) 0 %; Eosinophils # (A) 0.1 k/uL (0-0.7); Eosinophils % (A) 2 %; HCT 43.3 % (34.0-46.0); Lymphocytes # (A) 0.4 k/uL (1.0-4.8); Lymphocytes % (A) 6 %; MCH 27.9 pg (25.0-35.0); MCHC 32.4 g/dL (31.0-37.0); MCV 86.1 fL (80.0-100.0); Mean Platelet Volume 7.6; Monocytes # (A) 0.2 k/uL (0-1.0); Monocytes % (A) 2 %; Neutrophils # (A) 6.5 k/uL (1.3-7.7); Neutrophils % (A) 89 %; Platelet Count 233 k/uL (150-450); RBC 5.03 m/uL (3.80-5.40); RDW 13.6 % (11.5-15.5); WBC 7.3 k/uL (3.8-10.6)
[2024-05-14] MEDS: PANTOPRAZOLE 40 MG/10 ML VIAL IVP STA (07:56)
[2024-05-14] MEDS: ACETAMINOPHEN IV (For NPO) 1,000 MG in EMPTY BAG 1 BAG IVPB STA (07:58)
[2024-05-14 08:07] LABS: ALT 14 U/L (4-34); AST 17 U/L (14-36); African American GFR (CKD) >90 (>60 ml/min/1.73 sqM); Albumin 4.8 g/dL (3.5-5.0); Alkaline Phosphatase 37 U/L (38-126); Amylase 67 U/L (30-110); Anion Gap 13 mmol/L; Blood Urea Nitrogen 13 mg/dL (7-17); Calcium 9.5 mg/dL (8.4-10.2); Carbon Dioxide 21 mmol/L (22-30); Chloride 104 mmol/L (98-107); Glucose 107 mg/dL (74-99); Lipase 82 U/L (23-300); Non-African American GFR(CKD) >90 (>60 ml/min/1.73 sqM); Potassium 3.9 mmol/L (3.5-5.1); Sodium 138 mmol/L (137-145); Total Bilirubin 1.3 mg/dL (0.2-1.3); Total Protein 7.6 g/dL (6.3-8.2)
[2024-05-14 08:33] LABS: Influenza A Not Detected (Not Detectd); Influenza B Not Detected (Not Detectd); RSV Not Detected (Not Detectd)
[2024-05-14 08:36] LABS: HCG,Qualitative Serum Not Detected
[2024-05-14 08:44] VITALS: BP 111/70; PULSE 92; RESP 16; TEMP 98.5
== END 2024-05-14 08:58 | disposition home or self-care (01) ==
LOC: EC 06:56
DX: R11.2 Nausea with vomiting, unspecified (principal); K21.9 Gastro-esophageal reflux disease without esophagitis; Z11.52 Encounter for screening for COVID-19
CPT/HCPCS: 36415; 80053; 82150; 83605; 83690; 85025; 84703; 87636; 99284; 96365; 96375; J2765; J3490; J0131; J2470